=== PATIENT | male | born 1940 | race Caucasian/White ===

== ENCOUNTER 2022-06-13 16:40 | Outpatient (REF) | payer MEDICARE, SELFPAY ==
--- NOTE | ~2022-06-13 | CT_ITS ---
CT head/brain wo IV con CLINICAL INFORMATION: Reason for Exam R29.898 - Other symptoms and signs involving the musculoskeletal system COMPARISON: No prior CT scan available for comparison. TECHNIQUE: Department standard protocol. This CT examination was performed using dose optimization techniques as appropriate, variously including the following: *Automated exposure control *Adjustment of mA and/or kV according to patient size (this includes techniques or standardized protocols for targeted exams where dose is matched to indication/reason for exam; i.e. extremities or head) *Use of iterative reconstruction technique DLP: 831 mGy-cm FINDINGS: CEREBRAL HEMISPHERES: There is no evidence of intra-axial or extra-axial mass, hemorrhage or acute infarct. BRAIN PARENCHYMA: Normal hill-white matter differentiation. SUBDURAL SPACE: No bleed. BASAL GANGLIA AND PINEAL GLAND: Unremarkable VENTRICLES: Symmetric and normal in size. CEREBELLUM AND BRAINSTEM: No space-occupying mass, hemorrhage or acute infarct. CEREBELLOPONTINE ANGLES: No lesion found. ORBITS: No intraorbital mass. VESSELS: Unremarkable SKULL BASE: Unremarkable INCLUDED SINUSES AT SKULL BASE: Clear SKULL AND SKIN: No fracture or bone lesion found. CT/CT head/brain wo IV con IMPRESSION: No CT evidence of intracranial space-occupying mass, bleed or infarct.
[2022-06-13 17:12] LABS: MANUAL DIFF FLAG NO
[2022-06-13 17:21] LABS: Basophils Absolute Auto 0.1 X10*3/uL (0.0-0.2); Basophils Percent Auto 0.9 % (0-2); Eosinophils Absolute Auto 0.2 X10*3/uL (0.0-0.4); Eosinophils Percent Auto 2.8 % (0-4); Hematocrit 36.4 % (42.0-52.0); Hemoglobin 11.8 g/dl (14.0-18.0); Imm Gran Abs Auto 0.03 X10*3/uL (0.00-0.03); Imm Gran Pct Auto 0.4 % (0.0-0.4); Mean Corpuscular HGB Conc 32.4 g/dl (31.0-36.0); Mean Corpuscular Hemoglobin 29.7 pg (27.0-33.0); Mean Corpuscular Volume 91.7 fL (80.0-98.0); Mean Platelet Volume 9.9 fL (9.4-12.4); Monocytes Absolute Auto 0.5 X10*3/uL (0.1-1.2); Monocytes Percent Auto 6.6 % (2-11); Neutrophils Absolute Auto 4.6 x10*3/uL (2.0-8.3); Neutrophils Percent Auto 62.3 % (45-73); Platelet Count 296 X10*3/uL (160-400); Red Blood Count 3.97 X10*6/uL (4.60-5.80); White Blood Count 7.4 X10*3/uL (4.8-10.8)
[2022-06-13 17:48] LABS: Estimated Average Glucose 120 mg/dL; Hemoglobin A1c % 5.8 %
[2022-06-13 18:06] LABS: Alanine Aminotransferase 10 U/L (0-40); Albumin Level 4.2 g/dL (3.5-5.0); Alkaline Phosphatase 82 U/L (39-117); Anion Gap 16 (12-20); Aspartate Amino Transferase 22 U/L (5-37); Bilirubin Total 0.5 mg/dL (0.0-1.0); Blood Urea Nitrogen 13 mg/dL (9-16); Calcium 10.2 mg/dL (8.4-10.2); Carbon Dioxide 24 mmol/L (22-29); Chloride 100 mmol/L (96-108); Cholesterol 232 mg/dL; Estimated Glomerular Filt Rate > 60; Glucose Fasting 115 mg/dL (60-99); HDL Cholesterol 63 mg/dL; LDL Cholesterol Calculated 152 mg/dl; Potassium 4.8 mmol/L (3.3-5.1); Sodium 135 mmol/L (135-145); Triglycerides 87 mg/dL
[2022-06-13 18:39] LABS: Folate > 20.0 ng/mL (> or = 4.0); Vitamin B12 764 pg/mL (200-900)
== END 2022-06-13 16:41 | disposition home or self-care (01) ==
LOC: HO.CT 16:40
PROVIDERS: Visit Provider Internal Medicine
DX: Z00.00 Encounter for general adult medical examination without abnormal findings (principal); I10 Essential (primary) hypertension; E78.5 Hyperlipidemia, unspecified; R29.898 Other symptoms and signs involving the musculoskeletal system
CPT/HCPCS: 36415; 70450; 80053; 80061; 82607; 82746; 83036; 85025

== ENCOUNTER 2023-03-21 12:59 | Outpatient (AMB) | payer MEDICARE, SELFPAY ==
[2023-03-21 13:07] VITALS: BP 140/80; PULSE 82; O2SAT 98; BMI 27.4
--- NOTE | 2023-03-21 13:07 | A.OFFPC_ITS ---
Vital Signs 03/21/23 13:07 Height 5 ft 8 in Weight 180 lb BMI 27.4 BP 140/80 H Blood Pressure Location Rt brachial Position Sitting Pulse 82 Pulse Source Pulse Oximeter Pulse Oximetry (%) 98 Oxygen Delivery Method Room Air Intake Visit Reasons: PE Intake Note: Pt is here today for PE. Allergies No Known Allergies Allergy (Verified 03/21/23 13:09) Medication List - Last Reconciled 03/21/23 by Alisson Galindo MD amlodipine 2.5 mg PO BID aspirin 81 mg PO DAILY cholecalciferol (vitamin D3) 50 mcg PO DAILY darolutamide (Nubeqa) 600 mg PO BID docusate sodium (Stool Softener) PO BID gabapentin 2 caps bid orally irbesartan 300 mg PO DAILY multivitamin 1 tab PO DAILY Tobacco use date assessed: 03/21/23 Fall risk assessment: No Falls in past year Last assessed Fall Risk: 03/21/23 Dental Screening Dental Screen Date: 03/21/23 Did you have a dental visit in the last 12 months?: No Did you have a dental problem in the last 6 months where you did not have access to dental care?: No Was dental information given to patient?: Patient declined HPI PE HPI Details Patient presents for physical PFSH Medical History (Updated 03/21/23 @ 13:41 by Alisson Galindo MD) Aneurysm, common iliac artery Annual physical exam BPH (benign prostatic hyperplasia) Colon polyps HTN (hypertension) Hyperlipidemia Inguinal hernia Nephrolithiasis Prostate CA Vitamin D deficiency Surgical History H/O colonoscopy Family History (Updated 03/21/23 @ 13:14 by Mansi Penny Yeison) Father CHF (congestive heart failure) Mother Hypertension ALS (amyotrophic lateral sclerosis) Social History Housing: House Patient Tobacco Use Status: Current everyday Tobacco user Cigarettes Per Day: 10 Years Smoked: over 50 years e-Cigarette/Vaping Use: Never Used Current occupational status: retired Cognitive needs: No Hearing needs: Yes Vision needs: Yes Questionnaire Thrive Questionnaire Date Thrive assessed: 11/19/21 AUDIT C Alcohol Use Questionnaire (AUDIT-C) 1. How often do you have a drink containing alcohol?: 2-3 times a week 2. How many drinks containing alcohol do you have on a typical day when you are drinking?: 1 or 2 3. How often do you have six or more drinks on one occasion?: Never Total Score: 3 JAIME-7 AMB Questionnaire JAIME-7 Date JAIME - 7 assessed: 11/19/21 Source: Developed by Drs. Gordy Ceballos, Danielle Purcell, Carlos Irby and colleagues, with an educational katerin from [facility]. Review of Systems Const All systems reviewed & are unremarkable except as noted in HPI and below Reports no additional complaints Eyes Reports no additional complaints ENT Reports no additional complaints Card Reports no additional complaints Resp Reports no additional complaints GI Reports no additional complaints Reports no additional complaints Physical exam (Primary Care) Vital Signs: Last Vital Signs Pulse 82 03/21/23 13:07 Pulse Ox 98 03/21/23 13:07 Oxygen Delivery Method Room Air 03/21/23 13:07 BMI result Body Mass Index 27.4 Tobacco/Smoking Status: Tobacco use Status Tobacco use date assessed 03/21/23 03/21/23 13:15 Patient Tobacco Use Status Current everyday Tobacco 03/21/23 13:15 e-Cigarette/Vaping Use Never Used 03/21/23 13:15 Thrive Assessment: Date of Thrive Assessment Date Thrive assessed 11/19/21 03/21/23 13:15 Const General: no acute distress HENMT Head: Yes normal to inspection Face and sinus: Yes normal facial exam Throat: Yes posterior oropharynx normal Neck Neck: Yes supple Resp Effort & Inspection: normal respiratory effort Auscultation: clear to auscultation bilaterally Cardio Rhythm: regular rhythm Heart sounds: S1 normal heart sound present and S2 normal heart sound present GI Inspection: Yes normal to inspection Palpation (GI): Soft to palpation Auscultation: normal bowel sounds Assessment and Plan Assessment & Plan (1) HTN (hypertension): Code(s): I10 - Essential (primary) hypertension Plan: Continue current medications (2) 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 Return in 6 months with a fasting labs before Orders: Orders Comprehensive [place]. Panel Fast 6 Months C61 - Malignant neoplasm of prostate, E78.5 - Hyperlipidemia, unspecified, I10 - Essential (primary) hypertension, R 73.9 - Hyperglycemia, unspecified Lipid Panel 6 Months C61 - Malignant neoplasm of prostate, E78.5 - Hyperlipidemia, unspecified, I10 - Essential (primary) hypertension, R73.9 - Hyperglycemia, unspecified Complete Blood Count Auto Diff 6 Months C61 - Malignant neoplasm of prostate, E78.5 - Hyperlipidemia, unspecified, I10 - Essential (primary) hypertension, R73.9 - Hyperglycemia, unspecified Hemoglobin A1c 6 Months C61 - Malignant neoplasm of prostate, E78.5 - Hyperlipidemia, unspecified, I10 - Essential (primary) hypertension, R73.9 - Hyperglycemia, unspecified Coding Level of Care Code Est Pt Prev Care >65y(78889) Diagnoses HTN (hypertension) I10 Prostate CA C61 Hyperlipidemia E78.5 Hyperglycemia R73.9
== END 2023-03-21 13:46 | disposition home or self-care (01) ==
PROVIDERS: PCP Internal Medicine; Visit Provider Internal Medicine
DX: Z00.00 Encounter for general adult medical examination without abnormal findings (principal); I10 Essential (primary) hypertension; C61 Malignant neoplasm of prostate; E78.5 Hyperlipidemia, unspecified; R73.9 Hyperglycemia, unspecified
CPT/HCPCS: 99397

== ENCOUNTER 2023-09-29 09:52 | Outpatient (AMB) | payer MEDICARE, SELFPAY ==
--- NOTE | 2023-09-29 10:08 | A.OFFPC_ITS ---
Vital Signs 09/29/23 10:10 Height 5 ft 8 in Weight 175 lb BMI 26.6 BP 138/72 Blood Pressure Location Lt brachial Position Sitting Pulse 78 Pulse Source Pulse Oximeter Pulse Oximetry (%) 99 Oxygen Delivery Method Room Air Intake Visit Reasons: 6 month fu Intake Note: Pt is here today for 6 months follow up visit. Allergies No Known Allergies Allergy (Verified 09/29/23 10:10) Medication List - Last Reconciled 09/29/23 by Alisson Galindo MD amlodipine 2.5 mg PO BID Anoro Ellipta 62.5-25 mcg/actuation (umeclidinium-vilanterol) 1 inh inhalation DAILY NS aspirin 81 mg PO DAILY cholecalciferol (vitamin D3) 50 mcg PO DAILY darolutamide (Nubeqa) 600 mg PO BID docusate sodium (Stool Softener) PO BID gabapentin 2 caps bid orally irbesartan 300 mg PO DAILY multivitamin 1 tab PO DAILY Tobacco use date assessed: 09/29/23 Fall risk assessment: 1 Fall in past year Last assessed Fall Risk: 09/29/23 Dental Screening Dental Screen Date: 09/29/23 Did you have a dental visit in the last 12 months?: No Did you have a dental problem in the last 6 months where you did not have access to dental care?: No Was dental information given to patient?: Patient declined HPI 6 month fu HPI Details Pt presents for f/u HTN, metastatic prostate ca controlled on meds. [facility] Medical History (Updated 09/29/23 @ 15:10 by Alisson Galindo MD) Vitamin D deficiency Annual physical exam Nephrolithiasis Aneurysm, common iliac artery Prostate CA Colon polyps Inguinal hernia BPH (benign prostatic hyperplasia) HTN (hypertension) Hyperlipidemia Surgical History H/O colonoscopy Family History Father CHF (congestive heart failure) Mother Hypertension ALS (amyotrophic lateral sclerosis) Social History Housing: House Patient Tobacco Use Status: Current everyday Tobacco user Cigarettes Per Day: 9 Years Smoked: over 50 years e-Cigarette/Vaping Use: Never Used Current occupational status: retired Cognitive needs: No Hearing needs: Yes Vision needs: Yes Questionnaire PHQ-9 Over the last 2 weeks, how often have you been bothered by any of the following problems? 1. Little interest or pleasure in doing things: not at all 2. Feeling down, depressed, or hopeless: not at all 3. Trouble falling or staying asleep, or sleeping too much: not at all 4. Feeling tired or having little energy: not at all 5. Poor appetite or overeating: not at all 6. Feeling bad about yourself - or that you are a failure or have let yourself or your family down: not at all 7. Trouble concentrating on things, such as reading the newspaper or watching television: not at all 8. Moving or speaking so slowly that other people could have noticed. Or the opposite - being so fidgety or restless that you have been moving around a lot more than usual: not at all 9. Thoughts that you would be better off or of hurting yourself in some way: not at all Total score: 0 Depression Screening Interpretation: Negative Depression Screening Done: Yes Source: Developed by Drs. Gordy Ceballos, Danielle Purcell, Carlos Irby and colleagues, with an educational katerin from [employer]. Thrive Questionnaire Date Thrive assessed: 09/29/23 I am a: Patient What is your living situation today?: I have a steady place to live Within the past 12 months, did the food you bought not last and you didn't have the money to get more?: Never true Within the past 12 months, did you worry whether your food would run out before you got money to buy more?: Never true Do you have trouble paying for medicines?: No Do you have trouble getting transportation to medical appointments?: No Do you have trouble paying your heating and electricity bill?: No Do you have trouble taking care of your child, family member or friend?: No Do you have trouble with day-to-day activities such as bathing, preparing meals, shopping, managing finances, etc.?: No Are you currently unemployed and looking for a job?: No Are you interested in more education?: No Please select the resources that you would like help with: None Currently or been in a relationship where the following occur: no concerns reported THRIVE Score: 0 AUDIT C Alcohol Use Questionnaire (AUDIT-C) 1. How often do you have a drink containing alcohol?: 2-3 times a week 2. How many drinks containing alcohol do you have on a typical day when you are drinking?: 1 or 2 3. How often do you have six or more drinks on one occasion?: Never Total Score: 3 JAIME-7 AMB Questionnaire JAIME-7 Date JAIME - 7 assessed: 09/29/23 Feeling nervous, anxious, or on edge: 0 = Not at all Not being able to stop or control worryin = Not at all Worrying too much about different things: 0 = Not at all Trouble relaxin = Not at all Being so restless that it is hard to sit still: 0 = Not at all Becoming easily annoyed or irritable: 0 = Not at all Feeling afraid as if something awful might happen: 0 = Not at all Total JAIME-7 score (0-4 normal; 5-9 mild; 10-14 moderate; 15-21 severe): 0 Source: Developed by Drs. Gordy Ceballos, Danielle Purcell, Carlos Irby and colleagues, with an educational katerin from [employer]. Review of Systems Const All systems reviewed & are unremarkable except as noted in HPI and below Reports no additional complaints Eyes Reports no additional complaints ENT Reports no additional complaints Card Reports no additional complaints Resp Reports no additional complaints GI Reports no additional complaints Reports no additional complaints Physical exam (Primary Care) Vital Signs: Last Vital Signs Pulse 78 09/29/23 10:10 BP 138/72 09/29/23 10:10 Pulse Ox 99 09/29/23 10:10 Oxygen Delivery Method Room Air 09/29/23 10:10 BMI result Body Mass Index 26.6 Tobacco/Smoking Status: Tobacco use Status Tobacco use date assessed 09/29/23 09/29/23 10:15 Patient Tobacco Use Status Current everyday Tobacco 09/29/23 10:15 e-Cigarette/Vaping Use Never Used 09/29/23 10:15 PHQ-9: PHQ-9 Score PHQ-9: Total score 0 09/29/23 10:41 Depression Screening Interpretation: Negative Thrive Assessment: Date of Thrive Assessment Date Thrive assessed 09/29/23 09/29/23 10:15 Currently or been in a relationship where the following occur: no concerns r eported Const General: no acute distress HENMT Head: Yes normal to inspection Ears: hearing grossly normal bilaterally Eyes General: appearance normal, both eyes and all related structures Neck Neck: Yes supple Resp Effort & Inspection: normal respiratory effort Auscultation: wheezes Cardio Rhythm: regular rhythm Heart sounds: S1 normal heart sound present and S2 normal heart sound present GI Inspection: Yes normal to inspection Palpation (GI): Soft to palpation Percussion: Yes normal to percussion Assessment and Plan Assessment & Plan (1) Hyperglycemia: Comment: A1C is 6.1 Code(s): R73.9 - Hyperglycemia, unspecified Plan: A1c is 6.1 today cont ADA, increase physical activity discussed with the patient follow-up in 6 months with a fasting labs before (2) 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, f/u [facility] , on Biculatamide and Eliguard Code(s): C61 - Malignant neoplasm of prostate Plan: Follow-up with oncology (3) Aneurysm, common iliac artery: Comment: 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 Tobacco quitting discussed with the patient Medications: New Anoro Ellipta 62.5-25 mcg/actuation (umeclidinium-vilanterol) 1 inh inhalation DAILY 60 ea 2RF NS Coding Level of Care Code Est Pt Level 4 (63087) Diagnoses Hyperglycemia R73.9 Prostate CA C61 Aneurysm, common iliac artery I72.3 HTN (hypertension) I10 COPD (chronic obstructive pulmonary disease) J44.9
[2023-09-29 10:10] VITALS: BP 138/72; PULSE 78; O2SAT 99; BMI 26.6
== END 2023-09-29 10:55 | disposition home or self-care (01) ==
PROVIDERS: PCP Internal Medicine; Visit Provider Internal Medicine
DX: R73.9 Hyperglycemia, unspecified (principal); C61 Malignant neoplasm of prostate; I72.3 Aneurysm of iliac artery; J44.9 Chronic obstructive pulmonary disease, unspecified; I10 Essential (primary) hypertension
CPT/HCPCS: 99214

== ENCOUNTER 2023-11-10 10:01 | Outpatient (AMB) | payer MEDICARE, SELFPAY ==
--- NOTE | 2023-11-10 10:08 | MHC.PC.OV ---
Vital Signs 11/10/23 10:20 Height 5 ft 8 in Weight 171 lb BMI 26.0 BP 130/70 Blood Pressure Location Rt brachial Position Sitting Pulse 76 Pulse Source Pulse Oximeter Pulse Oximetry (%) 95 Oxygen Delivery Method Room Air Intake Visit Reasons: 1M F/U HTN Intake Note: Pt is here today for 1 month follow up visit. Allergies No Known Allergies Allergy (Verified 11/10/23 10:20) Medication List - Last Reconciled 11/10/23 by Alisson Galindo MD amlodipine 2.5 mg PO BID Anoro Ellipta 62.5-25 mcg/actuation (umeclidinium-vilanterol) 1 inh inhalation DAILY NS aspirin 81 mg PO DAILY cholecalciferol (vitamin D3) 50 mcg PO DAILY darolutamide (Nubeqa) 600 mg PO BID docusate sodium (Stool Softener) PO BID gabapentin 2 caps bid orally irbesartan 300 mg PO DAILY multivitamin 1 tab PO DAILY Tobacco use date assessed: 09/29/23 Dental Screening Dental Screen Date: 09/29/23 HPI 1M F/U HTN HPI Details Pt presents for HTN, stable on meds. Patient did not start using Anoro inhaler because of very high co-pay. He has been cutting down on smoking down to half a pack a day and denies cough shortness for breath or wheezing PFSH Medical History Vitamin D deficiency Annual physical exam Nephrolithiasis Aneurysm, common iliac artery Prostate CA Colon polyps Inguinal hernia BPH (benign prostatic hyperplasia) HTN (hypertension) Hyperlipidemia Surgical History H/O colonoscopy Family History Father CHF (congestive heart failure) Mother Hypertension ALS (amyotrophic lateral sclerosis) Social History Housing: House Patient Tobacco Use Status: Current everyday Tobacco user Cigarettes Per Day: 9 Years Smoked: over 50 years e-Cigarette/Vaping Use: Never Used Current occupational status: retired Cognitive needs: No Hearing needs: Yes Vision needs: Yes Questionnaire Thrive Questionnaire Date Thrive assessed: 09/29/23 JAIME-7 AMB Questionnaire JAIME-7 Date JAIME - 7 assessed: 09/29/23 Source: Developed by Drs. Gordy Ceballos, Danielle Purcell, Carlos Irby and colleagues, with an educational katerin from [employer]. Review of Systems Const All systems reviewed & are unremarkable except as noted in HPI and below ENT Reports no additional complaints Card Reports no additional complaints Resp Reports no additional complaints GI Reports no additional complaints Physical exam (Primary Care) Vital Signs: Last Vital Signs Pulse 76 11/10/23 10:20 Pulse Ox 95 11/10/23 10:20 Oxygen Delivery Method Room Air 11/10/23 10:20 BMI result Body Mass Index 26.0 Tobacco/Smoking Status: Tobacco use Status Tobacco use date assessed 09/29/23 11/10/23 10:09 Patient Tobacco Use Status Current everyday Tobacco 11/10/23 10:09 e-Cigarette/Vaping Use Never Used 11/10/23 10:09 Thrive Assessment: Date of Thrive Assessment Date Thrive assessed 09/29/23 11/10/23 10:09 Const General: no acute distress HENMT Head: Yes normal to inspection Throat: Yes posterior oropharynx normal Neck Neck: Yes supple Resp Effort & Inspection: normal respiratory effort Auscultation: diminished lung sounds Cardio Rhythm: regular rhythm Heart sounds: S1 normal heart sound present and S2 normal heart sound present GI Inspection: Yes normal to inspection Palpation (GI): Soft to palpation Assessment and Plan Assessment & Plan (1) COPD (chronic obstructive pulmonary disease): Comment: Patient declined using inhalers due to the high co-pay Code(s): J44.9 - Chronic obstructive pulmonary disease, unspecified Plan: Cutting down on smoking discussed with the patient. 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
[2023-11-10 10:20] VITALS: BP 130/70; PULSE 76; O2SAT 95; BMI 26.0
== END 2023-11-10 11:20 | disposition home or self-care (01) ==
PROVIDERS: PCP Internal Medicine; Visit Provider Internal Medicine
DX: J44.9 Chronic obstructive pulmonary disease, unspecified (principal); R73.9 Hyperglycemia, unspecified; C61 Malignant neoplasm of prostate; I10 Essential (primary) hypertension
CPT/HCPCS: 99214

== ENCOUNTER 2024-04-05 09:58 | Outpatient (AMB) | payer MEDICARE, SELFPAY ==
--- NOTE | 2024-04-05 09:56 | MHC.PC.OV ---
Vital Signs 04/05/24 09:59 Height 5 ft 8 in Weight 170 lb BMI 25.8 BP 130/80 Blood Pressure Location Lt brachial Position Sitting Pulse 68 Pulse Source Pulse Oximeter Pulse Oximetry (%) 100 Oxygen Delivery Method Room Air Intake Visit Reasons: PE Intake Note: Patient here for physical exam. Allergies No Known Allergies Allergy (Verified 04/05/24 10:00) Medication List - Last Reconciled 04/05/24 by Alisson Galindo MD amlodipine 2.5 mg PO BID aspirin 81 mg PO DAILY cholecalciferol (vitamin D3) 50 mcg PO DAILY darolutamide (Nubeqa) 600 mg PO BID docusate sodium (Stool Softener) PO BID gabapentin 2 caps bid orally irbesartan 300 mg PO DAILY multivitamin 1 tab PO DAILY Tobacco use date assessed: 09/29/23 Fall risk assessment: 2 + Falls in past year Last assessed Fall Risk: 04/05/24 Dental Screening Dental Screen Date: 09/29/23 HPI PE HPI Details Patient presents for a physical. He is undergoing treatment for metastatic prostate CA and follows up with Oncology and Urology. [facility] Medical History Vitamin D deficiency Annual physical exam Nephrolithiasis Aneurysm, common iliac artery Prostate CA Colon polyps Inguinal hernia BPH (benign prostatic hyperplasia) HTN (hypertension) Hyperlipidemia Surgical History H/O colonoscopy Family History Father CHF (congestive heart failure) Mother Hypertension ALS (amyotrophic lateral sclerosis) Social History Housing: House Patient Tobacco Use Status: Current everyday Tobacco user Cigarettes Per Day: 9 Years Smoked: over 50 years e-Cigarette/Vaping Use: Never Used Current occupational status: retired Cognitive needs: No Hearing needs: Yes Vision needs: Yes Questionnaire PHQ-9 Over the last 2 weeks, how often have you been bothered by any of the following problems? 70452 - PHQ-9 Billing: Patient declined-do not bill Source: Developed by Drs. Gordy Ceballos, Danielle Purcell, Carlos Irby and colleagues, with an educational katerin from [employer]. Thrive Questionnaire Date Thrive assessed: 09/29/23 AUDIT C Alcohol Use Questionnaire (AUDIT-C) 1. How often do you have a drink containing alcohol?: Never Total Score: 0 Score Reviewed/Action Taken: No JAIME-7 AMB Questionnaire JAIME-7 Date JAIME - 7 assessed: 09/29/23 Source: Developed by Drs. Gordy Ceballos, Danielle Purcell, Carlos Irby and colleagues, with an educational katerin from [employer]. Review of Systems Const All systems reviewed & are unremarkable except as noted in HPI and below Eyes Reports no additional complaints ENT Reports no additional complaints Card Reports no additional complaints Resp Reports no additional complaints GI Reports no additional complaints Reports no additional complaints Physical exam (Primary Care) Vital Signs: Last Vital Signs Pulse 68 04/05/24 09:59 BP 130/80 04/05/24 09:59 Pulse Ox 100 04/05/24 09:59 Oxygen Delivery Method Room Air 04/05/24 09:59 BMI result Body Mass Index 25.8 Tobacco/Smoking Status: Tobacco use Status Tobacco use date assessed 09/29/23 04/05/24 09:56 Patient Tobacco Use Status Current everyday Tobacco 04/05/24 09:56 e-Cigarette/Vaping Use Never Used 04/05/24 09:56 Thrive Assessment: Date of Thrive Assessment Date Thrive assessed 09/29/23 04/05/24 09:56 Const General: no acute distress HENMT Head: Yes normal to inspection General nose exam: Normal external nose present Eyes General: appearance normal, both eyes and all related structures Neck Neck: Yes supple Resp Effort & Inspection: normal respiratory effort Auscultation: clear to auscultation bilaterally Cardio Rhythm: regular rhythm Heart sounds: S1 normal heart sound present and S2 normal heart sound present GI Inspection: Yes normal to inspection Palpation (GI): Soft to palpation Percussion: Yes normal to percussion Auscultation: normal bowel sounds Assessment and Plan Assessment & Plan (1) Hyperglycemia: Comment: A1C is 6.1 Code(s): R73.9 - Hyperglycemia, unspecified Plan: Continue ADA diet increase physical activity discussed with the patient. (2) HTN (hypertension): Code(s): I10 - Essential (primary) hypertension Plan: Continue current medications (3) 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, f/u [facility] oncology , on Biculatamide and Eliguard Code(s): C61 - Malignant neoplasm of prostate Plan: Follow-up with oncology and urology Orders: Orders Comprehensive [place]. Panel Fast 1 Year C61 - Malignant neoplasm of prostate, I10 - Essential (primary) hypertension, R73.9 - Hyperglycemia, unspecified Complete Blood Count Auto Diff 1 Year C61 - Malignant neoplasm of prostate, I10 - Essential (primary) hypertension, R73.9 - Hyperglycemia, unspecified IRON PROFILE 1 Year C61 - Malignant neoplasm of prostate, I10 - Essential (primary) hypertension, R73.9 - Hyperglycemia, unspecified Lipid Panel 1 Year C61 - Malignant neoplasm of prostate, I10 - Essential (primary) hypertension, R73.9 - Hyperglycemia, unspecified Hemoglobin A1c 1 Year C61 - Malignant neoplasm of prostate, I10 - Essential (primary) hypertension, R73.9 - Hyperglycemia, unspecified Medications: Discontinued gabapentin Discontinued Reason: Doctor's Order 2 caps bid orally 120 caps 3RF Anoro Ellipta 62.5-25 mcg/actuation (umeclidinium-vilanterol) Discontinued Reason: Doctor's Order 1 inh inhalation DAILY 60 ea 2RF NS Coding Level of Care Code Est Pt Prev Care >65y(44561) Diagnoses Hyperglycemia R73.9 HTN (hypertension) I10 Prostate CA C61
[2024-04-05 09:59] VITALS: BP 130/80; PULSE 68; O2SAT 100; BMI 25.8
== END 2024-04-05 11:00 | disposition home or self-care (01) ==
LOC: HO.HMGC 09:58
PROVIDERS: PCP Internal Medicine; Visit Provider Internal Medicine
DX: Z00.00 Encounter for general adult medical examination without abnormal findings (principal); C61 Malignant neoplasm of prostate; R73.9 Hyperglycemia, unspecified; I10 Essential (primary) hypertension
CPT/HCPCS: 99397

== ENCOUNTER 2025-02-04 09:30 | Outpatient (AMB) | payer MEDICARE, SELFPAY ==
[2025-02-04 09:32] VITALS: BP 142/66; PULSE 79; RESP 18; TEMP 36.8; O2SAT 97; BMI 26.6
--- NOTE | 2025-02-04 09:32 | MHC.PC.OV ---
Vital Signs 02/04/25 09:32 Height 5 ft 8 in Weight 175 lb BMI 26.6 BP 142/66 H Blood Pressure Location Lt brachial Position Sitting Respiration 18 Pulse 79 Pulse Source Pulse Oximeter Temp 98.2 F Temp Source Oral Pulse Oximetry (%) 97 Oxygen Delivery Method Room Air Intake Visit Reasons: ED follow up, trouble urinating Intake Note: Pt is here today for ER follow up visit. Allergies No Known Allergies Allergy (Verified 02/04/25 09:36) Medication List - Last Reconciled 02/04/25 by Alisson Galindo MD amlodipine 2.5 mg PO BID aspirin 81 mg PO DAILY cholecalciferol (vitamin D3) 50 mcg PO DAILY darolutamide (Nubeqa) 600 mg PO BID docusate sodium (Stool Softener) PO BID irbesartan 300 mg PO DAILY multivitamin 1 tab PO DAILY Tobacco use date assessed: 02/04/25 Fall risk assessment: 2 + Falls in past year Last assessed Fall Risk: 02/04/25 Dental Screening Dental Screen Date: 02/04/25 Did you have a dental visit in the last 12 months?: Yes Did you have a dental problem in the last 6 months where you did not have access to dental care?: No Was dental information given to patient?: Patient has dentist HPI ED follow up, trouble urinating HPI Details Pt presents for f/u ER visit for UTI. Patient completed course of the antibiotic yesterday. He denies dysuria increased urinary frequency abdominal pain fever or chills. Patient is concern about a smaller than usual amount of urine output despite drinking fluids. He had a normal blood work and bladder scan in the ER. Patient has been getting chemotherapy metastatic prostate CA due for the next infusion next week. Patient is established with urologist. Hypertension has been controlled on current medications. [facility] Medical History Vitamin D deficiency Annual physical exam Nephrolithiasis Aneurysm, common iliac artery Prostate CA Colon polyps Inguinal hernia BPH (benign prostatic hyperplasia) HTN (hypertension) Hyperlipidemia Surgical History H/O colonoscopy Family History Father CHF (congestive heart failure) Mother Hypertension ALS (amyotrophic lateral sclerosis) Social History Housing: House Patient Tobacco Use Status: Current everyday Tobacco user Cigarettes Per Day: 9 Years Smoked: over 50 years e-Cigarette/Vaping Use: Never Used Current occupational status: retired Cognitive needs: No Hearing needs: Yes Vision needs: Yes Questionnaire PHQ-9 Over the last 2 weeks, how often have you been bothered by any of the following problems? 1. Little interest or pleasure in doing things: not at all 2. Feeling down, depressed, or hopeless: not at all 3. Trouble falling or staying asleep, or sleeping too much: not at all 4. Feeling tired or having little energy: not at all 5. Poor appetite or overeating: not at all 6. Feeling bad about yourself - or that you are a failure or have let yourself or your family down: not at all 7. Trouble concentrating on things, such as reading the newspaper or watching television: not at all 8. Moving or speaking so slowly that other people could have noticed. Or the opposite - being so fidgety or restless that you have been moving around a lot more than usual: not at all 9. Thoughts that you would be better off or of hurting yourself in some way: not at all Total score: 0 Depression Screening Interpretation: Negative Depression Screening Done: Yes 19798 - PHQ-9 Billing: Yes Source: Developed by Drs. Gordy Ceballos, Danielle Purecll, Carlos Irby and colleagues, with an educational katerin from [employer]. Thrive Questionnaire Date Thrive assessed: 02/04/25 I am a: Patient What is your living situation today?: I have a steady place to live Within the past 12 months, did the food you bought not last and you didn't have the money to get more?: Never true Within the past 12 months, did you worry whether your food would run out before you got money to buy more?: Never true Do you have trouble paying for medicines?: No Do you have trouble getting transportation to medical appointments?: No Do you have trouble paying your heating and electricity bill?: No Do you have trouble taking care of your child, family member or friend?: No Do you have trouble with day-to-day activities such as bathing, preparing meals, shopping, managing finances, etc.?: No Are you currently unemployed and looking for a job?: No Are you interested in more education?: No Please select the resources that you would like help with: None THRIVE Score: 0 AUDIT C Alcohol Use Questionnaire (AUDIT-C) 1. How often do you have a drink containing alcohol?: Never 3. How often do you have six or more drinks on one occasion?: Never Total Score: 0 JAIME-7 AMB Questionnaire JAIME-7 Date JAIME - 7 assessed: 02/04/25 Feeling nervous, anxious, or on edge: 0 = Not at all Not being able to stop or control worryin = Not at all Worrying too much about different things: 0 = Not at all Trouble relaxin = Not at all Being so restless that it is hard to sit still: 0 = Not at all Becoming easily annoyed or irritable: 0 = Not at all Feeling afraid as if something awful might happen: 0 = Not at all Total JAIME-7 score (0-4 normal; 5-9 mild; 10-14 moderate; 15-21 severe): 0 Source: Developed by Drs. Gordy Ceballos, Danielle Purcell, Carlos Irby and colleagues, with an educational katerin from [employer]. JAIME-7 Assessment Billing JAIME-7 Assessment Tool: JAIME-7 Assessment 23193 Review of Systems Const All systems reviewed & are unremarkable except as noted in HPI and below ENT Reports no additional complaints Card Reports no additional complaints Resp Reports no additional complaints GI Reports no additional complaints Reports no additional complaints Physical exam (Primary Care) Vital Signs: Last Vital Signs Temp 98.2 F 02/04/25 09:32 Pulse 79 02/04/25 09:32 Resp 18 02/04/25 09:32 BP 142/66 H 02/04/25 09:32 Pulse Ox 97 02/04/25 09:32 Oxygen Delivery Method Room Air 02/04/25 09:32 BMI result Body Mass Index 26.6 Tobacco/Smoking Status: Tobacco use Status Tobacco use date assessed 09/29/23 02/04/25 09:32 Patient Tobacco Use Status Current everyday Tobacco 02/04/25 09:32 e-Cigarette/Vaping Use Never Used 07/08/25 09:32 Depression Screening Interpretation: Negative Thrive Assessment: Date of Thrive Assessment Date Thrive assessed 09/29/23 02/04/25 09:32 Const General: no acute distress HENMT Head: Yes normal to inspection Mouth: Normal oral and palatal mucosa present Eyes General: appearance normal, both eyes and all related structures Resp Effort & Inspection: normal respiratory effort Auscultation: clear to auscultation bilaterally Cardio Rhythm: regular rhythm Heart sounds: S1 normal heart sound present and S2 normal heart sound present GI Inspection: Yes normal to inspection Palpation (GI): Soft to palpation Percussion: Yes normal to percussion Auscultation: normal bowel sounds Coding Level of Care Code Est Pt Level 4 (41652) Diagnoses UTI (urinary tract infection) N39.0 HTN (hypertension) I10 Aneurysm, common iliac artery I72.3 Prostate CA C61 COPD (chronic obstructive pulmonary disease) J44.9 Additional Codes JAIME-7 Assessment Billing - JAIME-7 Assessment Tool: JAIME-7 Assessment 79472 ([id number]) PHQ-9 - 46356 - PHQ-9 Billing: Yes ([id number]) Assessment & Plan Assessment & Plan (1) UTI (urinary tract infection): Code(s): N39.0 - Urinary tract infection, site not specified Category: Medical Plan: Repeat urine culture 1 week after completing the treatment for UTI (2) HTN (hypertension): Code(s): I10 - Essential (primary) hypertension Category: Medical Plan: Continue current medications (3) Aneurysm, common iliac artery: Comment: 2.6 cm proximal L common iliac MRI 03/2020, [facility] vascular, stable, annually every Sept Code(s): I72.3 - Aneurysm of iliac artery Category: Medical Plan: Follow-up with the vascular surgeon (4) 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, f/u [facility] oncology , on Biculatamide and Eliguard Code(s): C61 - Malignant neoplasm of prostate Category: Medical Plan: Follow-up with oncology and urology (5) COPD (chronic obstructive pulmonary disease): Comment: Patient declined using inhalers due to the high co-pay Code(s): J44.9 - Chronic obstructive pulmonary disease, unspecified Category: Medical Plan: Albuterol PRN Orders: Orders Urine Culture 1 Week N39.0 - Urinary tract infection, site not specified UA w Microscopic 1 Week N39.0 - Urinary tract infection, site not specified
--- OUTSIDE RECORDS SUMMARY | 2025-02-04 09:58 | XMS_ITS | Clinical Summary ---
Author Organization [facility] Address [address] [place] [address] Care Team Providers Care Astrochemist Name Role Phone Alisson Galindo MD Primary Care Provider [phone] Allergies Active Allergy Reactions Criticality Noted Date Comments Seasonal Other (See Comments) 12/16/2022 Medications Medication Sig Dispensed Refills Start Date End Date Status bicalutamide (CASODEX) 50 MG tablet Take 1 tablet (50 mg total) by mouth daily 0 Active aspirin EC 81 MG tablet Take 1 tablet (81 mg total) by mouth daily. 0 Active Multiple Vitamins-Minerals (CENTRUM SILVER 50+MEN PO) Take by mouth. 0 Active docusate sodium (COLACE) 100 MG capsule Take 1 capsule (100 mg total) by mouth 2 (two) times a day. 0 Active IRBESARTAN PO Take by mouth. 0 Active polyethylene glycol (MIRALAX) 17 g packet Take 17 g by mouth daily. 0 Active Cholecalciferol (Vitamin D) 50 MCG (2000 UT) tablet Take 2,000 Units by mouth daily. 0 Active amLODIPine-atorvasta tin (CADUET) 2.5-10 MG per tablet Take 1 tablet by mouth daily. 0 Active gabapentin (NEURONTIN) 100 MG capsule Take 1 capsule (100 mg total) by mouth daily. 2 TABLETS IN THE MORNING, 2 TABLETS IN THE EVENIN Pt taking one every other day 0 Active AMLODIPINE BESYLATE PO Take by mouth 2 (two) times a day. 0 Active Darolutamide 300 MG TABSIndications:Pros lind cancer (HCC),Malignant neoplasm metastatic to bone (HCC) Take 600 mg by mouth 2 (two) times a day 120 tablet 11 02/19/2024 Active Active Problems Problem Noted Date Diagnosed Date Prostate cancer 11/26/2020 Malignant neoplasm metastatic to bone 11/26/2020 Social History Tobacco Use Types Packs/Day Years Used Date Smoking Tobacco: Every Day Smokeless Tobacco: Never Sex and Gender Information Value Date Recorded Sex Assigned at Not on file Gender Identity Not on file Sexual Orientation Not on file Job Start Date Occupation Industry Not on file Not on file Not on file Last Filed Vital Signs Vital Sign Reading Time Taken Comments Blood Pressure 164/57 09/22/2023 2:50 PM EST Pulse 90 12/22/2023 2:06 PM EDT Temperature 36.7 C (98 F) 03/22/2024 2:10 PM EDT Respiratory Rate - - Oxygen Saturation 99% 03/22/2024 2:10 PM EDT Inhaled Oxygen Concentration - - Weight 80.4 kg (177 lb 3.2 oz) 12/22/2023 2:06 P M EDT Height 167.6 cm (5' 6 ) 12/22/2023 2:06 PM EDT Body Mass Index 28.6 12/22/2023 2:06 PM EDT Plan of Treatment Health Maintenance Due Date Last Done Comments Depression Screening 1953 Preventative Health Evaluation 1959 Tobacco Cessation Counseling 1959 DTap / Tdap / Td (1 - Tdap) 1960 Shingrix-Zoster Vaccine (1 of 2) 1960 Fall Risk Assessment 2006 Pneumococcal Vaccine (2 of 2 - PCV) 04/04/2014 04/04/2013 RSV Adult > 60+ Yrs or (1 - 1-dose 75+ series) 2016 COVID-19 Vaccine ( season) 2024 11/26/2021, 07/23/2021, 11/07/2020, Additional history exists Influenza Vaccine (#1) 2025 Hepatitis B Vaccines Aged Out No long er eligible based on patient's age to complete this topic RSV Ped < 20 months Aged Out No longe r eligible based on patient's age to complete this topic Care Teams Astrochemist Relationship Specialty Start Date End Date Alisson Galindo MD [address] [place] [id number] PCP - General Metal Loader 11/18/20
--- OUTSIDE RECORDS SUMMARY | 2025-02-04 09:58 | XMS_ITS | Clinical Summary ---
Author Organization [facility] Address [address] [place] [address] Phone Care Team Providers Care Retail Grocer Name Role Phone Alisson Galindo MD Primary Care Provider [phone] Allergies Active Allergy Reactions Criticality Noted Date Comments Other 10/02/2023 Seasonal allergies Medications aspirin 81 mg EC tablet Take 1 tablet (81 mg total) by mouth 1 (one) time each day. Active cholecalciferol (VITAMIN D-3) 50 mcg (2,000 unit) tablet Take 2,000 Units by mouth daily. Active docusate sodium (COLACE) 100 mg capsule Take 1 capsule (100 mg total) by mouth 2 (two) times a day. Active polyethylene glycol (MIRALAX) 17 gram packet Take 17 g by mouth. Active amlodipine besylate (AMLODIPINE ORAL) Take by mouth. Active IRBESARTAN ORAL Take by mouth. Active mv-min/folic/K1 /lycopen/lutein (CENTRUM SILVER MEN ORAL) Take by mouth. Active cefpodoxime (VANTIN) 200 mg tablet Take 1 tablet (200 mg total) by mouth 2 (two) times a day for 10 days. 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 V24, CMS/HCC V28) 11/26/2020 Prostate cancer (CMS/HCC V24, CMS[facility] V28) 11/26 Encounters Date Type Department Care Team Description 01/26/2025 7:59 AM EDT - 01/26/2025 10:19 AM EDT Emergency [facility] Emergency [address] [place] [address] Cystitis (Primary Dx) Discharge Disposition: Home or Self Care 01/26/2025 Telephone [facility] Hematology Oncology [address] [place] [phone] Maria DoloresMimi, 01/17/2025 Telephone [facility] Hematology Oncology [address] [place] [phone] Aidan Rausch MD Returning Call 01/16/2025 11:30 AM EDT - 01/16/2025 11:59 PM EDT Hospital Encounter [facility] [address] [place] [phone] Aidan Rausch MD 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 V24, CMS/HCC V28) (Primary Dx); Prostate cancer ([facility]/HCC V24, CMS/HCC V28) Discharge Disposition: Home or Self Care 12/26/2024 11:30 AM EDT - 12/26/2024 11:59 PM EDT Hospital Encounter [facility] [address] [place] [phone] Aidan Rausch MD 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 V24, CMS/HCC V28) (Primary Dx); Prostate cancer (CMS/HCC V24, CMS/HCC V28) Discharge Disposition: Home or Self Care 12/26/2024 Telephone [facility] Hematology Oncology [address] [place] [phone] Aidan Rausch MD 12/13/2024 2:45 PM EDT Office Visit [facility] Hematology Oncology [address] [place] [phone] Aidan Rausch MD 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 V24, CMS/HCC V28) (Primary Dx); Prostate cancer (CMS/HCC V24, CMS/HCC V28) 12/05/2024 11:30 AM EDT - 12/05/2024 11:59 PM EDT Hospital Encounter [facility] [address] [place] [phone] Aidan Rausch MD Malignant neoplasm metastatic to bone ([facility]/HCC V24, CMS/HCC V28) (Primary Dx); Prostate cancer ([facility]/HCC V24, CMS/HCC V28) Discharge Disposition: Home or Self Care 11/14/2024 11:30 AM EDT - 11/14/2024 11:59 PM EDT Hospital Encounter [facility] [address] [phone] Aidan Rausch MD Malignant neoplasm metastatic to bone ([facility]/HCC V24, [facility]/HCC V28) (Primary Dx); Prostate cancer ([facility]/HCC V24, CMS/HCC V28) Discharge Disposition: Home or Self Care 11/13/2024 3:00 PM EDT Office Visit [facility] Hematology Oncology [address] [place] [phone] Aidan Rausch MD Malignant neoplasm metastatic to bone ([facility] V24, [facility] V28) (Primary Dx); Prostate cancer ([facility] V24, [facility] V28) from Last 3 Months Immunizations Name Administration Dates Next Due Marley Spoon (ages 12 & older) ROCK S-CoV-2 COVID-19, mRNA, LNP-S, junie-sucrose, preservative free 11/26/2021 Pfizer SARS-CoV-2 COVID-19, mRNA, LNP-S, preservative free 07/23/2021,11/07/2020,10/17/2020 Social History Tobacco Use Types Packs/Day Years Used Date Smoking Tobacco: Every Day Smokeless Tobacco: Never Tobacco Cessation:Ready to Q uit: Not Asked; Counseling Given: Not Answered Sex and Gender Information Value Date Recorded Sex Assigned at Male 08/08/2024 9:02 AM EST Legal Sex Male 5:02 PM EST Gender Identity Male 08/08/2024 9:02 AM EST Sexual Orientation Choose not to disclose 2024 9:02 AM EST Obstetrics History Last Filed Vital Signs Vital Sign Reading Time Taken Comments Blood Pressure 179/67 01/26/2025 7:16 AM EDT Pulse 84 01/26/2025 7:16 AM EDT Temperature 36.9 C (98.4 F) 01/26/2025 7:16 AM EDT Respiratory Rate 16 01/26/2025 7:16 AM EDT Oxygen Saturation 99% 01/26/2025 7:16 AM EDT Inhaled Oxygen Concentration - - Weight 81.6 kg (180 lb) 01/26/2025 7:08 AM EDT Height 170.2 cm (5' 7 ) 01/26/2025 7:08 AM EDT Body Mass Index 28.19 01/26/2025 7:08 AM EDT Plan of Treatment Upcoming Encounters Date Type Department Care Team (Late st Contact Info) Description 02/06/2025 11:30 AM EDT Appointment [facility] [address] [place] [phone] 02/06/2025 2:45 PM EDT Office Visit [facility] Hematology Oncology [address] [place] [phone] Aidan Rausch MD [address] [place] [phone] 02/27/2025 2:45 PM EDT Office Visit [facility] Hematology Oncology [address] [place] [phone] Aidan Rausch MD [address] [place] [phone] Health Maintenance Due Date Last Done Comments DTaP,Tdap,and Td Vaccines (1 - Tdap) 1959 Zoster Vaccines (1 of 2) 1959 Pneumococcal Vaccine: 50+ Years (2 of 2 - PCV) 04/04/2014 04/04/2013 RSV Immunization Adult Patients (1 - 1-dose 75+ series) 2016 Cholesterol Screening (Lipid Panel) 06/29/2022 Depression Screening 06/29/2022 Medicare Annual Wellness Visit 06/29/2022 Social Influencers of Health Screening 06/29/2022 COVID-19 Vaccine ( season) 2024 05/23/2023, 10/18/2022, 11/26/2021, Additional history exists Influenza Vaccine (#1) 2025 Falls Risk Assessment 01/16/2026 01/16/2025 Hypertension/CHF/CAD Annual BMP Blood Test 01/26/2026 01/26/2025, 01/15/2025, 12/25/2024, Additional history exists HIB Vaccines Aged Out No longer eligi ble based on patient's age to complete this topic HPV Vaccines Aged Out No longer eligi ble based on patient's age to complete this topic Hepatitis A Vaccines Aged Out No long er eligible based on patient's age to complete this topic Hepatitis B Vaccines Aged Out No long er eligible based on patient's age to complete this topic IPV Vaccines Aged Out No longer eligi ble based on patient's age to complete this topic MMR Vaccines Aged Out No longer eligi ble based on patient's age to complete this topic Meningococcal ACWY Vaccine Aged Out N o longer eligible based on patient's age to complete this topic Meningococcal B Vaccine Aged Out No l onger eligible based on patient's age to complete this topic RSV Immunization Patients Under 20 months Aged Out No longer eligible based on patient's age to complete this topic Varicella Vaccines Aged Out No longer eligible based on patient's age to complete this topic Procedures Procedure Name Priority Date/Time Associated Diagnosis Comments RIOS URINE CULTURE TUBE STAT 01/26/2025 8:31 AM EDT URINALYSIS WITH REFLEX MICROSCOPIC AND CULTURE STAT 01/26/2025 8:31 AM EDT URINALYSIS WITH REFLEX MICROSCOPIC AND CULTURE STAT 01/26/2025 8:31 AM EDT CULTURE URINE STAT 01/26/2025 8:31 AM EDT CBC WITH AUTO DIFFERENTIAL STAT 01/26/2025 7:14 AM EDT BASIC METABOLIC PANEL STAT 01/26/2025 7:14 AM EDT CBC AND DIFFERENTIAL STAT 01/26/2025 7:14 AM EDT CBC WITH AUTO DIFFERENTIAL Routine 01/15/2025 3:04 PM EDT 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 V24, CMS/HCC V28) Prostate cancer (CMS/HCC V24, CMS/HCC V28) PROSTATE SPECIFIC ANTIGEN DIAGNOSTIC Routine 01/15/2025 3:04 PM EDT 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 V24, CMS/HCC V28) Prostate cancer (CMS/HCC V24, CMS/HCC V28) COMPREHENSIVE METABOLIC PANEL Routine 01/15/2025 3:04 PM EDT 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 V24, CMS/HCC V28) Prostate cancer (CMS/HCC V24, CMS/HCC V28) CBC AND DIFFERENTIAL Routine 01/15/2025 3:04 PM EDT 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 V24, CMS/HCC V28) Prostate cancer (CMS/HCC V24, CMS/HCC V28) CBC WITH AUTO DIFFERENTIAL Routine 12/25/2024 1:38 PM EDT 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 V24, CMS/HCC V28) Prostate cancer (CMS/HCC V24, CMS/HCC V28) PROSTATE SPECIFIC ANTIGEN DIAGNOSTIC Routine 12/25/2024 1:38 PM EDT 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 V24, CMS/HCC V28) Prostate cancer (CMS/HCC V24, CMS/HCC V28) COMPREHENSIVE METABOLIC PANEL Routine 12/25/2024 1:38 PM EDT 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 V24, CMS/HCC V28) Prostate cancer (CMS/HCC V24, CMS/HCC V28) CBC AND DIFFERENTIAL Routine 12/25/2024 1:38 PM EDT 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 V24, CMS/HCC V28) Prostate cancer (CMS/HCC V24, CMS/HCC V28) CBC WITH AUTO DIFFERENTIAL Routine 12/04/2024 2:50 PM EDT 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 V24, CMS/HCC V28) Prostate cancer (CMS/HCC V24, CMS/HCC V28) PROSTATE SPECIFIC ANTIGEN DIAGNOSTIC Routine 12/04/2024 2:50 PM EDT 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 V24, CMS/HCC V28) Prostate cancer (CMS/HCC V24, CMS/HCC V28) COMPREHENSIVE METABOLIC PANEL Routine 12/04/2024 2:50 PM EDT 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 V24, CMS/HCC V28) Prostate cancer (CMS/HCC V24, CMS/HCC V28) CBC AND DIFFERENTIAL Routine 12/04/2024 2:50 PM EDT 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 V24, CMS/HCC V28) Prostate cancer (CMS/HCC V24, CMS/HCC V28) CBC WITH AUTO DIFFERENTIAL Routine 11/13/2024 2:37 PM EDT 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 V24, CMS/HCC V28) Prostate cancer (CMS/HCC V24, CMS/HCC V28) COMPREHENSIVE METABOLIC PANEL Routine 11/13/2024 2:37 PM EDT 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 V24, CMS/HCC V28) Prostate cancer (CMS/HCC V24, CMS/HCC V28) CBC AND DIFFERENTIAL Routine 11/13/2024 2:37 PM EDT 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 V24, CMS/HCC V28) Prostate cancer (CMS/HCC V24, CMS/HCC V28) PROSTATE SPECIFIC ANTIGEN DIAGNOSTIC Routine 11/13/2024 2:37 PM EDT 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 V24, CMS/HCC V28) Prostate cancer (CMS/HCC V24, CMS/HCC V28) from Last 3 Months Results * (ABNORMAL) Urinalysis with reflex microscopic and culture (01/26/2025 8:31 AM EDT) Pathologist [facility] Specific [place] Urine 1.018 1.003 - 1.030 LAB URINALYSIS - AUTOMATED METHOD 01/26/2025 8:56 AM [facility] pH, Urine 6.5 5.0 - 8.0 pH LAB URINALYSIS - AUTOMATED METHOD 01/26/2025 8:56 AM [facility] Leukocytes, Urine Large(A) Negative LAB URINALYSIS - AUTOMATED METHOD 01/26/2025 8:56 AM [facility] Nitrite, Urine Positive(A) Negative LAB URINALYSIS - AUTOMATED METHOD 01/26/2025 8:56 AM [facility] Protein, Urine 100(A) <=Trace mg/dL LAB URINALYSIS - AUTOMATED METHOD 01/26/2025 8:56 AM [facility] Glucose, Urine Negative Negative mg/dL LAB URINALYSIS - AUTOMATED METHOD 01/26/2025 8:56 AM [facility] Ketones, Urine Negative Negative mg/dL LAB URINALYSIS - AUTOMATED METHOD 01/26/2025 8:56 AM [facility] Urobilinogen , Urine 0.2 0.2 - 1.0 mg/dL LAB URINALYSIS - AUTOMATED METHOD 01/26/2025 8:56 AM [facility] Bilirubin, Urine Negative Negative LAB URINALYSIS - AUTOMATED METHOD 01/26/2025 8:56 AM [facility] Blood, Urine Negative Negative LAB URINALYSIS - AUTOMATED METHOD 01/26/2025 8:56 AM [facility] RBC, Urine 2.1 0 - 4 /HPF LAB URINALYSIS - AUTOMATED METHOD 01/26/2025 8:56 AM [facility] WBC, Urine 324.0(H) 0 - 4 /HPF LAB URINALYSIS - AUTOMATED METHOD 01/26/2025 8:56 AM [facility] Squamous Epithelial, Urine 41 0 - 60 /LPF LAB URINALYSIS - AUTOMATED METHOD 01/26/2025 8:56 AM EDT [facility] Bacteria, Urine Many(A) Negative /HPF LAB URINALYSIS - AUTOMATED METHOD 01/26/2025 8:56 AM EDT [facility] Hyaline Casts, Urine 2.0 0 - 3 /LPF LAB URINALYSIS - AUTOMATED METHOD 01/26/2025 8:56 AM EDT [facility] Urine Urine specimen obtained by clean catch procedure / Unknown Non-blood Collection / Unknown 01/26/2025 8:31 AM EDT 01/26/2025 8:40 AM EDT Dennis Manriquez MD LAB URINE ORDERABLES Final Res ult Performing Organization Address [facility] Co de Phone Number [facility] [address] [place] [address], [place] [phone] * Rios urine culture tube (01/26/2025 8:31 AM EDT) Extra Tube Hold for add-ons. 01/26/2025 10:01 AM EDT [facility] Comment:Auto resulted. Urine Urine specimen obtained by clean catch procedure / Unknown Non-blood Collection / Unknown 01/26/2025 8:31 AM EDT 01/26/2025 8:40 AM EDT Dennis Manriquez MD LAB URINE ORDERABLES Final Res ult Performing Organization Address City/[facility]/ZIP Co de Phone Number [facility] [address] [place] [address], [place] [phone] * (ABNORMAL) Culture urine (01/26/2025 8:31 AM EDT) Culture, Urine >100,000 CFU/mL Escherichia coli(A) KAM 01/28/2025 10:13 AM EDT [facility] Urine Urine specimen obtained by clean catch procedure / Unknown Non-blood Collection / Unknown 01/26/2025 8:31 AM EDT 01/26/2025 8:56 AM EDT Narrative Organism Antibiotic Method Susceptibility Escherichia coli Amoxicillin/Clavulanate KAM <=2 ug/ml: Susceptible Escherichia coli Ampicillin/Sulbactam KAM <=2 ug/ml: Susceptible Escherichia coli Piperacillin/Tazobactam KAM <=4 ug/ml: Susceptible Escherichia coli Cefazolin (Urine) KAM 2 ug/ml: Susceptible Escherichia coli Cefoxitin KAM <=4 ug/ml: Susceptible Escherichia coli Ceftazidime KAM <=0.5 ug/ml: Susceptible Escherichia coli Ceftriaxone KAM <=0.25 ug/ml: Susceptible Escherichia coli Cefepime KAM <=0.12 ug/ml: Susceptible Escherichia coli Meropenem KAM <=0.25 ug/ml: Susceptible Escherichia coli Amikacin KAM 2 ug/ml: Susceptible Escherichia coli Gentamicin KAM <=1 ug/ml: Susceptible Escherichia coli Ciprofloxacin KAM 0.5 ug/ml: Intermediate Escherichia coli Levofloxacin KAM 1 ug/ml: Intermediate Escherichia coli Nitrofurantoin KAM 64 ug/ml: Intermediate Escherichia coli Trimethoprim/Sulfamethoxazole KAM <=20 ug/ml: Susceptible Dennis Manriquez MD LAB MICROBIOLOGY - GENERAL ORD ERABLES Final Result [facility] [address] [place] [address], [place] [phone] * (ABNORMAL) CBC auto differential (01/26/2025 7:14 AM EDT) Only the most recent of5 resultswithin the time period is included. WBC 9.2 4.8 - 10.8 K/mcL LAB HEMETOLOGY METHOD 01/26/2025 7:43 AM EDT [facility] RBC 3.70(L) 4.50 - 5.50 M/mcL LAB HEMETOLOGY METHOD 01/26/2025 7:43 AM EDT [facility] Hemoglobin 11.1(L) 13.5 - 17.5 g/dL LAB HEMETOLOGY METHOD 01/26/2025 7:43 AM [facility] Hematocrit 33.8(L) 42.0 - 54.0 % LAB HEMETOLOGY METHOD 01/26/2025 7:43 AM [facility] MCV 91.8 79.0 - 98.0 FL LAB HEMETOLOGY METHOD 01/26/2025 7:43 AM [facility] MCH 30.2 27.0 - 32.0 pcg LAB HEMETOLOGY METHOD 01/26/2025 7:43 AM [facility] MCHC 32.8 32.0 - 37.0 g/dL LAB HEMETOLOGY METHOD 01/26/2025 7:43 AM [facility] RDW 14.5 11.0 - 15.0 % LAB HEMETOLOGY METHOD 01/26/2025 7:43 AM [facility] Platelets 317 130 - 400 K/mcL LAB HEMETOLOGY METHOD 01/26/2025 7:43 AM [facility] MPV 10.1 7.0 - 11.0 FL LAB HEMETOLOGY METHOD 01/26/2025 7:43 AM [facility] NRBC 0.0 <1.0 % LAB HEMETOLOGY METHOD 01/26/2025 7:43 AM [facility] NRBC Absolute 0.00 <0.10 K/mcL LAB HEMETOLOGY METHOD 01/26/2025 7:43 AM [facility] Neutrophils Relative 61.6 % LAB HEMETOLOGY METHOD 01/26/2025 7:43 AM [facility] Lymphocytes Relative 25.7 % LAB HEMETOLOGY METHOD 01/26/2025 7:43 AM [facility] Monocytes Relative 8.5 % LAB HEMETOLOGY METHOD 01/26/2025 7:43 AM [facility] Eosinophils Relative 2.5 % LAB HEMETOLOGY METHOD 01/26/2025 7:43 AM EDT [facility] Basophils Relative 1.0 % LAB HEMETOLOGY METHOD 01/26/2025 7:43 AM [facility] Immature Granulocytes Relative 0.7 % LAB HEMETOLOGY METHOD 01/26/2025 7:43 AM EDT [facility] Neutrophils Absolute 5.68 1.50 - 7.00 K/mcL LAB HEMETOLOGY METHOD 01/26/2025 7:43 AM EDT [facility] Lymphocytes Absolute 2.37 1.00 - 5.00 K/mcL LAB HEMETOLOGY METHOD 01/26/2025 7:43 AM EDT [facility] Monocytes Absolute 0.78 0.20 - 1.00 K/mcL LAB HEMETOLOGY METHOD 01/26/2025 7:43 AM EDT [facility] Eosinophils Absolute 0.23 0.00 - 0.50 K/mcL LAB HEMETOLOGY METHOD 01/26/2025 7:43 AM EDT [facility] Basophils Absolute 0.09 0.00 - 0.20 K/mcL LAB HEMETOLOGY METHOD 01/26/2025 7:43 AM [facility] Immature Granulocytes Absolute 0.06(H) 0.00 - 0.03 K/mcL LAB HEMETOLOGY METHOD 01/26/2025 7:43 AM EDT [facility] Blood Venous blood specimen / Unknown Venipuncture / Unknown 01/26/2025 7:14 AM EDT 01/26/2025 7:37 AM EDT us Dennis Manriquez MD LAB BLOOD ORDERABLES Final Res ult [facility] [address] [place] [address], * (ABNORMAL) Basic metabolic panel (01/26/2025 7:14 AM EDT) Sodium 134 133 - 145 mmol/L LAB CHEMISTRY METHOD 01/26/2025 8:05 AM [facility] Potassium 5.2 3.5 - 5.5 mmol/L LAB CHEMISTRY METHOD 01/26/2025 8:05 AM [facility] Chloride 102 96 - 110 mmol/L LAB CHEMISTRY METHOD 01/26/2025 8:05 AM [facility] CO2 28 21 - 32 mmol/L LAB CHEMISTRY METHOD 01/26/2025 8:05 AM [facility] Anion Gap 4 3 - 11 LAB CHEMISTRY METHOD 01/26/2025 8:05 AM [facility] Glucose 116(H) 70 - 100 mg/dL LAB CHEMISTRY METHOD 01/26/2025 8:05 AM [facility] BUN 12 5 - 25 mg/dL LAB CHEMISTRY METHOD 01/26/2025 8:05 AM [facility] Creatinine 0.80 0.70 - 1.30 mg/dL LAB CHEMISTRY METHOD 01/26/2025 8:05 AM [facility] eGFR 88 >=60 mL/min/1. 73m2 LAB CHEMISTRY METHOD 01/26/2025 8:05 AM [facility] Comment:Calculation based on the Chronic Kidney Disease Epidemiology Collaboration (CKD-EPI) equation refit without adjustment for race. BUN/Creatinine Ratio 15.0 LAB CHEMISTRY METHOD 01/26/2025 8:05 AM [facility] Calcium 9.4 8.5 - 10.5 mg/dL LAB CHEMISTRY METHOD 01/26/2025 8:05 AM [facility] Blood Venous blood specimen / Unknown Venipuncture / Unknown 01/26/2025 7:14 AM EDT 01/26/2025 7:37 AM EDT Dennis Manriquez MD LAB BLOOD ORDERABLES Final Res ult Performing Organization Address City/[facility]/ZIP Co de Phone Number [facility] [address] [place] [address], [place] [phone] * (ABNORMAL) Prostate specific antigen diagnostic (01/15/2025 3:04 PM EDT) Only the most recent of4 resultswithin the time period is included. Pathologist [facility] PSA 50.73(H) 0.00 - 4.00 ng/mL LAB CHEMISTRY METHOD 01/15/2025 6:37 PM EDT [facility] Blood Venous blood specimen / Unknown Venipuncture / Unknown 01/15/2025 3:04 PM EDT 01/15/2025 4:36 PM EDT Narrative [facility] - 01/15/2025 6:37 PM EDT The Siemens Advia Centaur Chemiluminescent Immunoassay is used. Results obtained with different assay methods or kits cannot be used interchangeably. Results cannot be interpreted as absolute evidence of the presence or absence of malignant disease. Aidan Rausch MD LAB BLOOD ORDERABLES Final Result Performing Organization Address [facility] Co de Phone Number [facility] [address] [place] [address], [place] [phone] * Comprehensive metabolic panel (01/15/2025 3:04 PM EDT) Only the most recent of4 resultswithin the time period is included. [facility] Sodium 135 133 - 145 mmol/L LAB CHEMISTRY METHOD 01/15/2025 6:14 PM EDT [facility] Potassium 4.8 3.5 - 5.5 mmol/L LAB CHEMISTRY METHOD 01/15/2025 6:14 PM EDT [facility] Chloride 99 96 - 110 mmol/L LAB CHEMISTRY METHOD 01/15/2025 6:14 PM EDT [facility] CO2 30 21 - 32 mmol/L LAB CHEMISTRY METHOD 01/15/2025 6:14 PM [facility] Anion Gap 6 3 - 11 LAB CHEMISTRY METHOD 01/15/2025 6:14 PM [facility] Glucose 89 70 - 100 mg/dL LAB CHEMISTRY METHOD 01/15/2025 6:14 PM [facility] BUN 16 5 - 25 mg/dL LAB CHEMISTRY METHOD 01/15/2025 6:14 PM [facility] Creatinine 0.94 0.70 - 1.30 mg/dL LAB CHEMISTRY METHOD 01/15/2025 6:14 PM [facility] eGFR 80 >=60 mL/min/1. 73m2 LAB CHEMISTRY METHOD 01/15/2025 6:14 PM [facility] Comment:Calculation based on the Chronic Kidney Disease Epidemiology Collaboration (CKD-EPI) equation refit without adjustment for race. BUN/Creatinine Ratio 17.0 LAB CHEMISTRY METHOD 01/15/2025 6:14 PM [facility] Calcium 9.7 8.5 - 10.5 mg/dL LAB CHEMISTRY METHOD 01/15/2025 6:14 PM [facility] AST (SGOT) 18 10 - 42 unit/L LAB CHEMISTRY METHOD 01/15/2025 6:14 PM [facility] ALT (SGPT) 14 10 - 60 unit/L LAB CHEMISTRY METHOD 01/15/2025 6:14 PM [facility] Alkaline Phosphatase 78 42 - 121 unit/L LAB CHEMISTRY METHOD 01/15/2025 6:14 PM [facility] Total Protein 6.5 6.0 - 8.0 g/dL LAB CHEMISTRY METHOD 01/15/2025 6:14 PM [facility] Albumin 3.5 3.2 - 5.0 g/dL LAB CHEMISTRY METHOD 01/15/2025 6:14 PM [facility] Total Bilirubin 0.3 0.0 - 1.4 mg/dL LAB CHEMISTRY METHOD 01/15/2025 6:14 PM EDT [facility] Blood Venous blood specimen / Unknown Venipuncture / Unknown 01/15/2025 3:04 PM EDT 01/15/2025 4:36 PM EDT us Aidan Rausch MD LAB BLOOD ORDERABLES Final Result [facility] [address] [place] [address], [place] [phone] from Last 3 Months Insurance [employer] Advance Directives Documents on File Type Date Recorded 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
== END 2025-02-04 11:09 | disposition home or self-care (01) ==
LOC: HO.HMCC 09:31
PROVIDERS: PCP Internal Medicine; Visit Provider Internal Medicine
DX: N39.0 Urinary tract infection, site not specified (principal); C61 Malignant neoplasm of prostate; J44.9 Chronic obstructive pulmonary disease, unspecified; I10 Essential (primary) hypertension; I72.3 Aneurysm of iliac artery

== ENCOUNTER → 2025-02-04 09:30 | Outpatient (BNVA) | payer MEDICARE, SELFPAY | PROVIDERS: PCP Internal Medicine; Visit Provider Internal Medicine | DX: I10 Essential (primary) hypertension (principal); C61 Malignant neoplasm of prostate; N39.0 Urinary tract infection, site not specified; I72.3 Aneurysm of iliac artery; J44.9 Chronic obstructive pulmonary disease, unspecified | CPT/HCPCS: 96127; 99212 ==

== ENCOUNTER 2025-04-18 09:50 | Outpatient (AMB) | payer MEDICARE, SELFPAY ==
--- NOTE | 2025-04-18 09:53 | A.OFFPC_ITS ---
Vital Signs 04/18/25 09:57 Height 5 ft 8 in Weight 175 lb BMI 26.6 BP 116/60 Blood Pressure Location Lt brachial Position Sitting Respiration 18 Pulse 87 Pulse Source Pulse Oximeter Temp 97.8 F Temp Source Oral Pulse Oximetry (%) 98 Oxygen Delivery Method Room Air Intake Visit Reasons: annual visit - see comments Intake Note: Pt is here today for PE. Allergies No Known Allergies Allergy (Verified 04/18/25 09:59) Medication List - Last Reconciled 04/18/25 by Alisson Galindo MD amlodipine 2.5 mg PO BID aspirin 81 mg PO DAILY cholecalciferol (vitamin D3) 50 mcg PO DAILY darolutamide (Nubeqa) 600 mg PO BID docusate sodium (Stool Softener) PO BID irbesartan 300 mg PO DAILY multivitamin 1 tab PO DAILY Tobacco use date assessed: 04/18/25 Fall risk assessment: No Falls in past year Last assessed Fall Risk: 04/18/25 Dental Screening Dental Screen Date: 02/04/25 HPI annual visit - see comments HPI Details Pt presents for PE. PFSH Medical History Vitamin D deficiency Annual physical exam Nephrolithiasis Aneurysm, common iliac artery Prostate CA Colon polyps Inguinal hernia BPH (benign prostatic hyperplasia) HTN (hypertension) Hyperlipidemia Surgical History H/O colonoscopy Family History Father CHF (congestive heart failure) Mother Hypertension ALS (amyotrophic lateral sclerosis) Social History Housing: House Patient Tobacco Use Status: Current everyday Tobacco user Cigarettes Per Day: 7 Years Smoked: over 50 years e-Cigarette/Vaping Use: Never Used service: Yes Current occupational status: retired Cognitive needs: No Hearing needs: Yes Vision needs: Yes Questionnaire PHQ-9 Over the last 2 weeks, how often have you been bothered by any of the following problems? 1. Little interest or pleasure in doing things: not at all 2. Feeling down, depressed, or hopeless: not at all 3. Trouble falling or staying asleep, or sleeping too much: not at all 4. Feeling tired or having little energy: more than half the days 5. Poor appetite or overeating: not at all 6. Feeling bad about yourself - or that you are a failure or have let yourself or your family down: not at all 7. Trouble concentrating on things, such as reading the newspaper or watching television: not at all 8. Moving or speaking so slowly that other people could have noticed. Or the opposite - being so fidgety or restless that you have been moving around a lot more than usual: not at all 9. Thoughts that you would be better off or of hurting yourself in some way: not at all Total score: 2 Depression Screening Interpretation: Negative Depression Screening Done: Yes Source: Developed by Drs. Gordy Ceballos, Danielle Purcell, Carlos Irby and colleagues, with an educational katerin from [employer]. Thrive Questionnaire Date Thrive assessed: 02/04/25 JAIME-7 AMB Questionnaire JAIME-7 Date JAIME - 7 assessed: 02/04/25 Source: Developed by Drs. Gordy Ceballos, Danielle Purcell, Carlos Irby and colleagues, with an educational katerin from [employer]. Review of Systems Const All systems reviewed & are unremarkable except as noted in HPI and below Eyes Reports no additional complaints ENT Reports no additional complaints Card Reports no additional complaints Resp Reports no additional complaints GI Reports no additional complaints Reports no additional complaints Physical exam (Primary Care) Vital Signs: Last Vital Signs Temp 97.8 F 04/18/25 09:57 Pulse 87 04/18/25 09:57 Resp 18 04/18/25 09:57 BP 116/60 04/18/25 09:57 Pulse Ox 98 04/18/25 09:57 Oxygen Delivery Method Room Air 04/18/25 09:57 BMI result Body Mass Index 26.6 Tobacco/Smoking Status: Tobacco use Status Tobacco use date assessed 04/18/25 04/18/25 10:02 Patient Tobacco Use Status Current everyday Tobacco 04/18/25 09:55 e-Cigarette/Vaping Use Never Used 04/18/25 09:55 PHQ-9: PHQ-9 Score PHQ-9: Total score 2 04/18/25 10:10 Depression Screening Interpretation: Negative Thrive Assessment: Date of Thrive Assessment Date Thrive assessed 02/04/25 04/18/25 09:55 Const General: no acute distress HENMT Head: Yes normal to inspection Face and sinus: Yes normal facial exam Throat: Yes posterior oropharynx normal Eyes General: appearance normal, both eyes and all related structures Resp Effort & Inspection: normal respiratory effort Auscultation: clear to auscultation bilaterally Cardio Rhythm: regular rhythm Heart sounds: S1 normal heart sound present and S2 normal heart sound present GI Inspection: Yes normal to inspection Palpation (GI): Soft to palpation Percussion: Yes normal to percussion Auscultation: normal bowel sounds Coding Level of Care Code Est Pt Prev Care >65y(47505) Diagnoses HTN (hypertension) I10 Hyperglycemia R73.9 Prostate CA C61 Assessment & Plan Assessment & Plan (1) HTN (hypertension): Code(s): I10 - Essential (primary) hypertension Category: Medical Plan: Patient decrease the dose of amlodipine to 2.5 mg daily. 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 Panel Fast 6 Months R73.9 - Hyperglycemia, unspecified Hemoglobin A1c 6 Months R73.9 - Hyperglycemia, unspecified Medications: Changed From amlodipine 2.5 mg PO BID 180 tabs 3RF To amlodipine 2.5 mg PO .qd 90 tabs 3RF
[2025-04-18 09:57] VITALS: BP 116/60; PULSE 87; RESP 18; TEMP 36.6; O2SAT 98; BMI 26.6
--- OUTSIDE RECORDS SUMMARY | 2025-04-18 10:24 | XMS_ITS | Clinical Summary ---
Author Organization [facility] Address [address] [place] [address] Care Team Providers Care District Medical Examiner Name Role Phone Alisson Galindo MD Primary Care Provider [phone] Allergies Active Allergy Reactions Criticality Noted Date [...] 75+ series) 2016 COVID-19 Vaccine ( season) 2025 11/26/2021, 07/23/2021, 11/07/2020, Additional history exists Influenza Vaccine (#1) 2025 Hepatitis B Vaccines Aged Out No long er eligible based on patient's age to complete this topic RSV Ped < 20 months Aged Out No longe r eligible based on patient's age to complete this topic Care Teams District Medical Examiner Relationship Specialty Start Date End Date Alisson Galindo MD [address] [place] [phone] PCP - General Metal Sprayer Protective Coating 11/18/20
--- OUTSIDE RECORDS SUMMARY | 2025-04-18 10:24 | XMS_ITS ---
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 ([facility] V24, [facility] V28) 11/26/2020 Prostate cancer ([facility] V24, [facility] V28) 11/26 Current Oncology Plans CABAZItaxel* Plan Start Date:10/02/2024 Plan Provider:Aidan Rausch MD Linked Problems 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 Radiation Treatments * No radiation treatments are documented for this patient in [facility]. Treatments may have been administered in another system.
--- OUTSIDE RECORDS SUMMARY | 2025-04-18 10:24 | XMS_ITS | Encounter Summary ---
Author Organization [facility] Address [address] [place] [address] Care Team Providers Care Director Medicare Sales Name Role Phone Alisson Galindo MD Primary Care Provider Encounter Details Date Type Department Care Team (Late st Contact Info) Description 08/14/2024 Lab Requisition [facility] - Main Lab [address] [place] [phone] [place], [place] [address] [address] Bacteriuria Social History Tobacco Use Types Packs/Day Years Used Date Smoking Tobacco: Every Day Smokeless Tobacco: Never Sex and Gender Information Value Date Recorded Sex Assigned at Male 08/08/2024 9:02 AM EST Legal Sex Male 5:02 PM EST Gender Identity Male 08/08/2024 9:02 AM EST Sexual Orientation Straight 02/27/2025 11 :31 AM EDT documented as of this encounter Plan of Treatment Upcoming Encounters Date Type Department Care Team (Late st Contact Info) Description 05/01/2025 11:00 AM EDT Office Visit [facility] Hematology Oncology [address] [place] [phone] Aidan Rausch MD [address] [place] [phone] 05/01/2025 11:30 AM EDT Appointment [facility] [address] [phone] 05/22/2025 11:15 AM EDT Office Visit [facility] Hematology Oncology [address] [place] [phone] Aidan Rausch MD [address] [place] [phone] 06/12/2025 11:30 AM EST Office Visit [facility] Hematology Oncology [address] [place] [phone] Alice Bailey PA [address] [place] [phone] 07/03/2025 11:15 AM EST Office Visit [facility] Hematology Oncology [address] [place] [address] Aidan Rausch MD [address] [place] [address] 07/23/2025 11:00 AM EST Office Visit [facility] Hematology Oncology [address] [place] [address] Aidan Rausch MD [address] [place] [address] 08/14/2025 11:00 AM EST Office Visit [facility] Hematology Oncology [address] [place] [address] Aidan Rausch MD [address] [place] [address] 09/04/2025 11:00 AM EST Office Visit [facility] Hematology Oncology [address] [place] [address] Aidan Rausch MD [address] [place] [address] 09/25/2025 11:00 AM EST Office Visit [facility] Hematology Oncology [address] [place] [phone] Aidan Rausch MD [address] [place] [phone] documented as of this encounter Procedures Procedure Name Priority Date/Time Associated Diagnosis Comments BACTERIAL IDENTIFICATION AND SUSCEPTIBILITY, AEROBIC Routine 08/13/2024 12:00 AM EST Bacteriuria documented in this encounter Results * (ABNORMAL) Bacterial identification and susceptibility, aerobic (08/13/2024 12:00 AM EST) Culture, Bacterial ID and Sensitivity Escherichia coli(A) KAM 08/15/2024 9:25 AM EST [facility] Other Urine specimen from urethra / Unknown 08/13/2024 08/14/2024 10:07 AM EST Narrative Organism Antibiotic Method Susceptibility Escherichia coli Amoxicillin/Clavulanate KAM <=2 ug/ml: Susceptible Escherichia coli Ampicillin/Sulbactam KAM <=2 ug/ml: Susceptible Escherichia coli Piperacillin/Tazobactam KAM <=4 ug/ml: Susceptible Escherichia coli Cefazolin (Urine) KAM <=1 ug/ml: Susceptible Escherichia coli Cefoxitin KAM <=4 [...] Escherichia coli Trimethoprim/Sulfamethoxazole KAM <=20 ug/ml: Susceptible us [facility] - GENERAL ORDER MICKY Final Result [facility] [address] [place] [address], documented in this encounter Visit Diagnoses Diagnosis Bacteriuria Other nonspecific finding on examination of urine documented in this encounter Care Teams Director Medicare Sales Relationship Specialty Start Date End Date Alisson Galindo MD [address] [place] [phone] PCP - General Internal Medicine 12/30/20 documented as of this encounter
--- OUTSIDE RECORDS SUMMARY | 2025-04-18 10:24 | XMS_ITS | Clinical Summary ---
Author Organization [facility] Address [address] [place] [address] Phone Care Team Providers Care Dispersion Mixer Name Role Phone Alisson Galindo MD Primary Care Provider [phone] Allergies Active Allergy Reactions Criticality Noted Date [...] amlodipine besylate (AMLODIPINE ORAL) Take by mouth. One daily Active IRBESARTAN ORAL Take by mouth. Active mv-min/folic/K1 /lycopen/lutein (CENTRUM SILVER MEN ORAL) Take by mouth. Active sulfamethoxazol e-trimethoprim (BACTRIM DS,SEPTRA DS) 800-160 mg per tablet Take 1 tablet by mouth 2 (two) times a day. 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 ([facility] V24, [facility] V28) 11/26/2020 Prostate cancer ([facility] V24, [facility] V28) 11/26 Encounters Date Type Department Care Team Description 04/10/2025 2:00 PM EDT Office Visit [facility] Hematology Oncology [address] [place] [phone] Aidan Rausch MD 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 V24, CMS/HCC V28) (Primary Dx); Prostate cancer (CMS/HCC V24, CMS/HCC V28) 04/10/2025 11:30 AM EDT - 04/10/2025 11:59 PM EDT Hospital Encounter [facility] [address] [place] [phone] Aidan Rausch MD 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 V24, CMS/HCC V28) (Primary Dx); Prostate cancer (CMS/HCC V24, CMS/HCC V28) Discharge Disposition: Home or Self Care 03/20/2025 2:15 PM EDT Office Visit [facility] Hematology Oncology [address] [place] [phone] Aidan Rausch MD Prostate cancer (CMS/HCC V24, CMS/HCC V28) (Primary Dx); 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 V24, CMS/HCC V28) 03/20/2025 11:30 AM EDT - 03/20/2025 11:59 PM EDT Hospital Encounter [address] [phone] Aidan Rausch MD 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 V24, CMS/HCC V28) (Primary Dx); Prostate cancer (CMS/HCC V24, CMS/HCC V28) Discharge Disposition: Home or Self Care 02/27/2025 2:15 PM EDT Office Visit [facility] Hematology Oncology [address] [place] [phone] Aidan Rausch MD Prostate cancer (CMS/HCC V24, CMS/HCC V28) (Primary Dx); 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 V24, CMS/HCC V28) 02/27/2025 11:30 AM EDT - 02/27/2025 11:59 PM EDT Hospital Encounter [facility] [address] [place] [phone] Aidan Rausch MD 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 V24, CMS/HCC V28) (Primary Dx); Prostate cancer ([facility] [place]24, [facility] V28) Discharge Disposition: Home or Self Care 02/06/2025 11:13 AM EDT - 02/06/2025 11:59 PM EDT Hospital Encounter [address] [phone] Aidan Rausch MD Malignant neoplasm metastatic to bone ([facility] [place]24, [facility] V28) (Primary Dx); Prostate cancer ([facility] [place]24, [facility] V28) Discharge Disposition: Home or Self Care 02/06/2025 10:45 AM EDT Office Visit [facility] Hematology Oncology [address] [place] [phone] Aidan Rausch MD Prostate cancer ([facility] [place]24, [facility] V28) (Primary Dx); Malignant neoplasm metastatic to bone ([facility] [place]24, [facility] V28) 02/05/[address] [phone] Melyssa Zacarias RN 01/26/2025 7:59 AM EDT - 01/26/2025 10:19 AM EDT Emergency [facility] Emergency [address] [place] [phone] Cystitis (Primary Dx) Discharge Disposition: Home or Self Care 01/26/2025 Telephone [facility] Hematology Oncology [address] [place] [phone] Mimi Whitten DO 01/17/2025 Telephone [facility] Hematology Oncology [address] [place] [phone] Aidan Rausch MD 01/16/2025 11:30 AM EDT - 01/16/2025 11:59 PM EDT Hospital Encounter [address] [phone] Aidan Rausch MD Malignant neoplasm metastatic to bone ([facility] [place]24, [facility] V28) (Primary Dx); Prostate cancer ([facility] V24, [facility] V28) Discharge Disposition: Home or Self Care from Last 3 Months Immunizations Name Administration Dates Next Due Pfizer (ages 12 & older) ROCK S-CoV-2 COVID-19, [...] Orientation Straight 02/27/2025 11 :31 AM EDT Obstetrics History Last Filed Vital Signs Vital Sign Reading Time Taken Comments Blood Pressure 138/68 04/10/2025 11:55 AM EDT Pulse 77 04/10/2025 11:55 AM EDT Temperature 36.1 C (97 F) 04/10/2025 11:55 AM EDT Respiratory Rate 18 04/10/2025 11:55 AM EDT Oxygen Saturation 98% 04/10/2025 11:55 AM EDT Inhaled Oxygen Concentration - - Weight 79.5 kg (175 lb 4.3 oz) 04/10/2025 11:55 AM EDT Height 170.2 cm (5' 7 ) 01/26/2025 7:08 AM EDT Body Mass Index 27.45 01/26/2025 7:08 AM EDT Plan of Treatment Upcoming Encounters Date Type Department Care Team (Late st Contact Info) Description 05/01/2025 11:00 AM EDT Office Visit [facility] Hematology Oncology [address] [place] [phone] Aidan Rausch MD [address] [place] [phone] 05/01/2025 11:30 AM EDT Appointment [facility] [address] [place] [phone] 05/22/2025 11:15 AM EDT Office Visit [facility] Hematology Oncology [address] [place] [phone] Aidan Rausch MD [address] [place] [phone] 06/12/2025 11:30 AM EST Office Visit [facility] Hematology Oncology [address] [place] [address] Alice Bailey PA [address] [place] [phone] 07/03/2025 11:15 AM EST Office Visit [facility] Hematology Oncology [address] [place] [address] Aidan Rausch MD [address] [place] [address] 07/23/2025 11:00 AM EST Office Visit [facility] Hematology Oncology [address] [place] [address] Aidan Rausch MD [address] [place] [address] 08/14/2025 11:00 AM EST Office Visit [facility] Hematology Oncology [address] [place] [address] Aidan Rausch MD [address] [place] [address] 09/04/2025 11:00 AM EST Office Visit [facility] Hematology Oncology [address] [place] [address] Aidan Rausch MD [address] [place] [address] 09/25/2025 11:00 AM EST Office Visit [facility] Hematology Oncology [address] [place] [phone] Aidan Rausch MD [address] [place] [phone] Health Maintenance Due Date Last Done Comments DTaP,Tdap,and Td Vaccines (1 - Tdap) 1959 Zoster Vaccines (1 of 2) 1959 Pneumococcal Vaccine: 50+ Years (2 of 2 - PCV) 04/04/2014 04/04/2013 RSV Immunization Adult Patients (1 - 1-dose 75+ series) 2016 Medicare Annual Wellness Visit 06/29/2022 Social Influencers of Health Screening 06/29/2022 Depression Screening 07/31/2024 COVID-19 Vaccine ( season) 2025 05/23/2023, 10/18/2022, 11/26/2021, Additional history exists Influenza Vaccine (#1) 2025 Falls Risk Assessment 03/20/2026 03/20/2025 Hypertension/CHF/CAD Annual BMP Blood Test 04/09/2026 04/09/2025, 03/19/2025, 02/26/2025, Additional history exists Cholesterol Screening (Lipid Panel) 04/09/2030 04/09/2025 HIB Vaccines Aged Out No longer eligi [...] Procedure Name Priority Date/Time Associated Diagnosis Comments CBC WITH AUTO DIFFERENTIAL Routine 04/09/2025 10:45 AM EDT 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 V24, CMS/HCC V28) Prostate cancer (CMS/HCC V24, CMS/HCC V28) LIPID PANEL WITH REFLEX TO DIRECT LDL Routine 04/09/2025 10:45 AM EDT Blood glucose elevated Essential hypertension, malignant Malignant neoplasm of prostate (CMS/HCC V24, CMS/HCC V28) HEMOGLOBIN A1C Routine 04/09/2025 10:45 AM EDT Blood glucose elevated Essential hypertension, malignant Malignant neoplasm of prostate (CMS/HCC V24, CMS/HCC V28) IRON Routine 04/09/2025 10:45 AM EDT Blood glucose elevated Essential hypertension, malignant Malignant neoplasm of prostate (CMS/HCC V24, CMS/HCC V28) PROSTATE SPECIFIC ANTIGEN DIAGNOSTIC Routine 04/09/2025 10:45 AM EDT 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 V24, CMS/HCC V28) Prostate cancer (CMS/HCC V24, CMS/HCC V28) COMPREHENSIVE METABOLIC PANEL Routine 04/09/2025 10:45 AM EDT 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 V24, CMS/HCC V28) Prostate cancer (CMS/HCC V24, CMS/HCC V28) CBC AND DIFFERENTIAL Routine 04/09/2025 10:45 AM EDT 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 V24, CMS/HCC V28) Prostate cancer (CMS/HCC V24, CMS/HCC V28) VITAMIN D 25 HYDROXY Routine 03/19/2025 1:43 PM EDT Vitamin D deficiency CBC WITH AUTO DIFFERENTIAL Routine 03/19/2025 1:41 PM EDT 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 V24, CMS/HCC V28) Prostate cancer (CMS/HCC V24, CMS/HCC V28) PROSTATE SPECIFIC ANTIGEN DIAGNOSTIC Routine 03/19/2025 1:41 PM EDT 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 V24, CMS/HCC V28) Prostate cancer (CMS/HCC V24, CMS/HCC V28) COMPREHENSIVE METABOLIC PANEL Routine 03/19/2025 1:41 PM EDT 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 V24, CMS/HCC V28) Prostate cancer (CMS/HCC V24, CMS/HCC V28) CBC AND DIFFERENTIAL Routine 03/19/2025 1:41 PM EDT 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 V24, CMS/HCC V28) Prostate cancer (CMS/HCC V24, CMS/HCC V28) CBC WITH AUTO DIFFERENTIAL Routine 02/26/2025 2:11 PM EDT 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 V24, CMS/HCC V28) Prostate cancer (CMS/HCC V24, CMS/HCC V28) PROSTATE SPECIFIC ANTIGEN DIAGNOSTIC Routine 02/26/2025 2:11 PM EDT 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 V24, CMS/HCC V28) Prostate cancer (CMS/HCC V24, CMS/HCC V28) COMPREHENSIVE METABOLIC PANEL Routine 02/26/2025 2:11 PM EDT 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 V24, CMS/HCC V28) Prostate cancer (CMS/HCC V24, CMS/HCC V28) CBC AND DIFFERENTIAL Routine 02/26/2025 2:11 PM EDT 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 V24, CMS/HCC V28) Prostate cancer (CMS/HCC V24, CMS/HCC V28) CBC WITH AUTO DIFFERENTIAL Routine 02/05/2025 2:20 PM EDT 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 V24, CMS/HCC V28) Prostate cancer (CMS/HCC V24, CMS/HCC V28) CBC AND DIFFERENTIAL Routine 02/05/2025 2:20 PM EDT 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 V24, CMS/HCC V28) Prostate cancer (CMS/HCC V24, CMS/HCC V28) COMPREHENSIVE METABOLIC PANEL Routine 02/05/2025 2:20 PM EDT 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 V24, CMS/HCC V28) Prostate cancer (CMS/HCC V24, CMS/HCC V28) PROSTATE SPECIFIC ANTIGEN DIAGNOSTIC Routine 02/05/2025 2:20 PM EDT 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 V24, CMS/HCC V28) Prostate cancer (CMS/HCC V24, CMS/HCC V28) RIOS URINE CULTURE TUBE STAT 01/26/2025 8:31 AM EDT URINALYSIS WITH REFLEX MICROSCOPIC AND CULTURE STAT 01/26/2025 8:31 AM EDT URINALYSIS WITH REFLEX MICROSCOPIC AND CULTURE STAT 01/26/2025 8:31 AM EDT CULTURE URINE STAT 01/26/2025 8:31 AM EDT CBC WITH AUTO DIFFERENTIAL STAT 01/26/2025 7:14 AM EDT BASIC METABOLIC PANEL STAT 01/26/2025 7:14 AM EDT CBC AND DIFFERENTIAL STAT 01/26/2025 7:14 AM EDT from Last 3 Months Results * (ABNORMAL) Lipid panel with reflex to direct LDL (04/09/2025 10:45 AM EDT) [facility] Cholesterol 215(H) 0 - 200 mg/dL LAB CHEMISTRY METHOD 04/09/2025 1:03 PM EDT [facility] Triglycerides 142 0 - 150 mg/dL LAB CHEMISTRY METHOD 04/09/2025 1:03 PM EDT [facility] HDL 65 >=40 mg/dL LAB CHEMISTRY METHOD 04/09/2025 1:03 PM EDT [facility] LDL Calculated 122(H) 0 - 100 mg/dL LAB CHEMISTRY METHOD 04/09/2025 1:03 PM EDT [facility] Comment:Estimated LDL Calcul ated using equation: Total cholesterol - HDL cholesterol - (Triglycerides/5) VLDL Cholesterol Arnoldo 28.4 mg/dL LAB CHEMISTRY METHOD 04/09/2025 1:03 PM EDT [facility] Non HDL Chol. (LDL+VLDL) 150(H) <145 mg/dL LAB CHEMISTRY METHOD 04/09/2025 1:03 PM EDT [facility] Chol/HDL Ratio 3.3 0.0 - 4.4 LAB CHEMISTRY METHOD 04/09/2025 1:03 PM EDT [facility] Blood Venous blood specimen / Unknown Venipuncture / Unknown 04/09/2025 10:45 AM EDT 04/09/2025 11:59 AM EDT us Alisson Galindo MD LAB BLOOD ORDERABLES Final Re sult [facility] [address] [place] [address], * (ABNORMAL) Prostate specific antigen diagnostic (04/09/2025 10:45 AM EDT) Only the most recent of4 resultswithin the time period is included. PSA 47.17(H) 0.00 - 4.00 ng/mL LAB CHEMISTRY METHOD 04/09/2025 1:32 PM EDT [facility] Blood Venous blood specimen / Unknown Venipuncture / Unknown 04/09/2025 10:45 AM EDT 04/09/2025 11:59 AM EDT Narrative [facility] - 04/09/2025 1:32 PM EDT The Siemens Advia Centaur Chemiluminescent Immunoassay is used. Results obtained with different assay methods or kits cannot be used interchangeably. Results cannot be interpreted as absolute evidence of the presence or absence of malignant disease. us Aidan Rausch MD LAB BLOOD ORDERABLES Final Result [facility] [address] [place] [address], [place] [phone] * (ABNORMAL) CBC auto differential (04/09/2025 10:45 AM EDT) Only the most recent of5 resultswithin the time period is included. WBC 7.6 4.8 - 10.8 K/mcL LAB HEMETOLOGY METHOD 04/09/2025 12:25 PM EDT [facility] RBC 3.80(L) 4.50 - 5.50 M/mcL LAB HEMETOLOGY METHOD 04/09/2025 12:25 PM EDT [facility] Hemoglobin 11.4(L) 13.5 - 17.5 g/dL LAB HEMETOLOGY METHOD 04/09/2025 12:25 PM EDT [facility] Hematocrit 34.5(L) 42.0 - 54.0 % LAB HEMETOLOGY METHOD 04/09/2025 12:25 PM EDT [facility] MCV 90.8 79.0 - 98.0 FL LAB HEMETOLOGY METHOD 04/09/2025 12:25 PM EDT [facility] MCH 30.0 27.0 - 32.0 pcg LAB HEMETOLOGY METHOD 04/09/2025 12:25 PM EDT [facility] MCHC 33.0 32.0 - 37.0 g/dL LAB HEMETOLOGY METHOD 04/09/2025 12:25 PM EDT [facility] RDW 15.0 11.0 - 15.0 % LAB HEMETOLOGY METHOD 04/09/2025 12:25 PM EDT [facility] Platelets 303 130 - 400 K/mcL LAB HEMETOLOGY METHOD 04/09/2025 12:25 PM EDT [facility] MPV 9.5 7.0 - 11.0 FL LAB HEMETOLOGY METHOD 04/09/2025 12:[facility] NRBC 0.0 <1.0 % LAB HEMETOLOGY METHOD 04/09/2025 12:25 PM EDT [facility] NRBC Absolute 0.00 <0.10 K/mcL LAB HEMETOLOGY METHOD 04/09/2025 12:[facility] Neutrophils Relative 61.8 % LAB HEMETOLOGY METHOD 04/09/2025 12:25 PM [facility] Lymphocytes Relative 24.5 % LAB HEMETOLOGY METHOD 04/09/2025 12:25 PM [facility] Monocytes Relative 9.5 % LAB HEMETOLOGY METHOD 04/09/2025 12:25 PM [facility] Eosinophils Relative 2.9 % LAB HEMETOLOGY METHOD 04/09/2025 12:25 PM [facility] Basophils Relative 0.8 % LAB HEMETOLOGY METHOD 04/09/2025 12:25 PM [facility] Immature Granulocytes Relative 0.5 % LAB HEMETOLOGY METHOD 04/09/2025 12:[facility] Neutrophils Absolute 4.70 1.50 - 7.00 K/mcL LAB HEMETOLOGY METHOD 04/09/2025 12:[facility] Lymphocytes Absolute 1.86 1.00 - 5.00 K/mcL LAB HEMETOLOGY METHOD 04/09/2025 12:[facility] Monocytes Absolute 0.72 0.20 - 1.00 K/mcL LAB HEMETOLOGY METHOD 04/09/2025 12:25 PM EDT [facility] Eosinophils Absolute 0.22 0.00 - 0.50 K/[facility] LAB HEMETOLOGY METHOD 04/09/2025 12:25 PM EDT [facility] Basophils Absolute 0.06 0.00 - 0.20 K/[facility] LAB HEMETOLOGY METHOD 04/09/2025 12:25 PM EDT [facility] Immature Granulocytes Absolute 0.04(H) 0.00 - 0.03 K/[facility] LAB HEMETOLOGY METHOD 04/09/2025 12:25 PM EDT [facility] Blood Venous blood specimen / Unknown Venipuncture / Unknown 04/09/2025 10:45 AM EDT 04/09/2025 11:59 AM EDT Aidan Rausch MD LAB BLOOD ORDERABLES Final Result Performing Organization Address City/[facility]/ZIP Co de Phone Number [facility] [address] [place] [address], [place] [phone] * (ABNORMAL) Iron (04/09/2025 10:45 AM EDT) [facility] Iron 38(L) 50 - 160 mcg/dL LAB CHEMISTRY METHOD 04/09/2025 1:03 PM EDT [facility] Blood Venous blood specimen / Unknown Venipuncture / Unknown 04/09/2025 10:45 AM EDT 04/09/2025 11:59 AM EDT Alisson Galindo MD LAB BLOOD ORDERABLES Final Re sult [facility] [address] [place] [address], [place] [phone] * Hemoglobin A1c (04/09/2025 10:45 AM EDT) Pathologist [facility] Hemoglobin A1C 6.3 <6.5 % LAB CHEMISTRY METHOD 04/09/2025 9:30 PM EDT [facility] Mean Bld Glu Estim. 134 mg/dL LAB CHEMISTRY METHOD 04/09/2025 9:30 PM [facility] Blood Venous blood specimen / Unknown Venipuncture / Unknown 04/09/2025 10:45 AM EDT 04/09/2025 11:59 AM EDT us Alisson Galindo MD LAB BLOOD ORDERABLES Final Re sult [facility] [address] [place] [address], [place] [phone] * (ABNORMAL) Comprehensive metabolic panel (04/09/2025 10:45 AM EDT) Only the most recent of4 resultswithin the time period is included. Sodium 131(L) 133 - 145 mmol/L LAB CHEMISTRY METHOD 04/09/2025 1:03 PM [facility] Potassium 4.9 3.5 - 5.5 mmol/L LAB CHEMISTRY METHOD 04/09/2025 1:03 PM [facility] Chloride 99 96 - 110 mmol/L LAB CHEMISTRY METHOD 04/09/2025 1:03 PM [facility] CO2 26 21 - 32 mmol/L LAB CHEMISTRY METHOD 04/09/2025 1:03 PM [facility] Anion Gap 6 3 - 11 LAB CHEMISTRY METHOD 04/09/2025 1:03 PM [facility] Glucose 97 70 - 100 mg/dL LAB CHEMISTRY METHOD 04/09/2025 1:03 PM [facility] BUN 12 5 - 25 mg/dL LAB CHEMISTRY METHOD 04/09/2025 1:03 PM [facility] Creatinine 0.71 0.70 - 1.30 mg/dL LAB CHEMISTRY METHOD 04/09/2025 1:03 PM [facility] eGFR 91 >=60 mL/min/1. 73m2 LAB CHEMISTRY METHOD 04/09/2025 1:03 PM [facility] Comment:Calculation based on the Chronic Kidney Disease Epidemiology Collaboration (CKD-EPI) equation refit without adjustment for race. BUN/Creatinine Ratio 16.9 LAB CHEMISTRY METHOD 04/09/2025 1:03 PM [facility] Calcium 9.4 8.5 - 10.5 mg/dL LAB CHEMISTRY METHOD 04/09/2025 1:03 PM [facility] AST (SGOT) 18 10 - 42 unit/L LAB CHEMISTRY METHOD 04/09/2025 1:03 PM [facility] ALT (SGPT) 14 10 - 60 unit/L LAB CHEMISTRY METHOD 04/09/2025 1:03 PM [facility] Alkaline Phosphatase 86 42 - 121 unit/L LAB CHEMISTRY METHOD 04/09/2025 1:03 PM [facility] Total Protein 6.2 6.0 - 8.0 g/dL LAB CHEMISTRY METHOD 04/09/2025 1:03 PM [facility] Albumin 3.6 3.2 - 5.0 g/dL LAB CHEMISTRY METHOD 04/09/2025 1:03 PM [facility] Total Bilirubin 0.5 0.0 - 1.4 mg/dL LAB CHEMISTRY METHOD 04/09/2025 1:03 PM [facility] Blood Venous blood specimen / Unknown Venipuncture / Unknown 04/09/2025 10:45 AM EDT 04/09/2025 11:59 AM EDT us Aidan Rausch MD LAB BLOOD ORDERABLES Final Result [facility] [address] [place] [address], * Vitamin D 25 hydroxy (03/19/2025 1:43 PM EDT) Pathologist [facility] Vit D, 25-Hydroxy 42.8 30.0 - 80.0 ng/mL LAB CHEMISTRY METHOD 03/19/2025 5:13 PM EDT [facility] Blood Venous blood specimen / Unknown Venipuncture / Unknown 03/19/2025 1:43 PM EDT 03/19/2025 4:31 PM EDT us Josselyn Rosario MD LAB BLOOD ORDERABLES Fin al Result [facility] [address] [place] [address], * (ABNORMAL) Urinalysis with reflex microscopic and culture (01/26/2025 8:31 AM EDT) [facility] Specific [place] Urine 1.018 1.003 - 1.030 LAB URINALYSIS [...] - AUTOMATED METHOD 01/26/2025 8:56 AM EDT [facility] Urobilinogen , Urine 0.2 0.2 [...] 01/26/2025 8:56 AM [facility] Bacteria, Urine Many(A) Negative /HPF LAB URINALYSIS - AUTOMATED METHOD 01/26/2025 8:56 AM [facility] Hyaline Casts, Urine 2.0 0 - 3 /LPF LAB URINALYSIS - AUTOMATED METHOD 01/26/2025 8:56 AM [facility] Urine Urine specimen obtained by clean catch procedure / Unknown Non-blood Collection / Unknown 01/26/2025 8:31 AM EDT 01/26/2025 8:40 AM EDT us Dennis Manriquez MD LAB URINE ORDERABLES Final Res ult [facility] [address] [place] [address], * Rios urine culture tube (01/26/2025 8:31 AM EDT) Extra Tube Hold for add-ons. 01/26/2025 10:01 AM EDT [facility] Comment:Auto resulted. Urine Urine specimen obtained by clean catch procedure / Unknown Non-blood Collection / Unknown 01/26/2025 8:31 AM EDT 01/26/2025 8:40 AM EDT us Dennis Manriquez MD LAB URINE ORDERABLES Final Res ult [facility] [address] [place] [address], * (ABNORMAL) Culture urine (01/26/2025 8:31 AM EDT) Culture, Urine >100,000 CFU/mL Escherichia coli(A) KAM 01/28/2025 10:13 AM EDT [facility] Urine Urine specimen obtained by clean [...] coli Trimethoprim/Sulfamethoxazole KAM <=20 ug/ml: Susceptible us Dennis Manriquez MD LAB MICROBIOLOGY - GENERAL ORD ERABLES Final Result [facility] [address] [place] [address], [place] [phone] * (ABNORMAL) Basic metabolic panel (01/26/2025 7:14 [...] mg/dL LAB CHEMISTRY METHOD 01/26/2025 8:05 AM EDT [facility] Blood Venous blood specimen / Unknown Venipuncture / Unknown 01/26/2025 7:14 AM EDT 01/26/2025 7:37 AM EDT us Dennis Manriquez MD LAB BLOOD ORDERABLES Final Res ult [facility] [address] [place] [address], [place] [phone] from Last 3 Months Insurance [employer] Advance Directives Documents on File Type Date Recorded Patient Chain Mender Expl anation Health Care Decision (hx) 05/17/2022 AURELIO GONZALEZ DIRECTIVE Care Teams Dispersion Mixer Relationship Specialty Start Date End Date Alisson Galindo MD [address] [place] [phone] PCP - General Internal Medicine 12/30/20
== END 2025-04-18 10:24 | disposition home or self-care (01) ==
LOC: HO.HMCC 09:51
PROVIDERS: PCP Internal Medicine; Visit Provider Internal Medicine
DX: Z00.00 Encounter for general adult medical examination without abnormal findings (principal); I10 Essential (primary) hypertension; R73.9 Hyperglycemia, unspecified; C61 Malignant neoplasm of prostate

== ENCOUNTER → 2025-04-18 09:50 | Outpatient (BNVA) | payer MEDICARE, SELFPAY | PROVIDERS: PCP Internal Medicine; Visit Provider Internal Medicine | DX: I10 Essential (primary) hypertension (principal); R73.9 Hyperglycemia, unspecified; C61 Malignant neoplasm of prostate | CPT/HCPCS: 96127; 99397 ==